=== PATIENT | female | born 1995 | race Caucasian/White ===

== ENCOUNTER 2020-02-09 22:11 | Emergency (ER) | payer MEDICAID, OTHER ==
[~2020-02-09] VITALS: Ht 157 cm; Wt 99.0 kg
[2020-02-09 22:40] LABS: BILIRUBIN,URINE NEGATIVE (NEGATIVE); CLARITY,URINE SL CLOUDY; COLOR,URINE YELLOW; GLUCOSE, URINE (UA) NEGATIVE (NEGATIVE); KETONES,URINE NEGATIVE (NEGATIVE); LEUKOCYTE ESTERASE ,URINE TRACE (NEGATIVE); NITRITE,URINE NEGATIVE (NEGATIVE); PH,URINE 6.5 (5-9); PROTEIN,URINE NEGATIVE (NEGATIVE)
[2020-02-09 22:47] LABS: BACTERIA,URINE TRACE /HPF; RBC,URINE RARE /HPF; WBC,URINE RARE /HPF
[2020-02-09] MEDS ORDERED: KETOROLAC 60 MG/2 ML VIAL IM ONE (23:00)
[2020-02-09] MEDS ORDERED: ACETAMINOPHEN 500 MG TAB (TYLENOL) PO ONE (23:00)
[2020-02-09] MEDS ORDERED: diphenhydrAMINE 25 MG TAB (BENADRYL) PO ONE (23:00)
[2020-02-09] MEDS ORDERED: PROCHLORPERAZINE 10 MG TAB (COMPAZINE) PO ONE (23:00)
--- NOTE | 2020-02-09 23:00 | ED Headache ---
General Chief Complaint: Head/Cervical Problems Stated Complaint: MIGRAINE Source: patient, family, other Exam Limitations: no limitations History of Present Illness Date Seen by Provider: Feb 09, 2020 Time Seen by Provider: 22:40 Initial Comments Patient presents to ER by private conveyance with chief complaint of the headache started sometime before 1400 today. She has a history of frequent headaches sometimes lasting hours sometimes lasting days. She said that she got off her shift at 10:00 and was still having a headache. She took some ibuprofen early on in her shift. She says she has tried topiramate in the past without success. She uses Tylenol, Excedrin, caffeine with little relief of her headaches. She is establishing care with a new primary care provider at [facility]. She's not having any nausea fever chills cough shortness of breath or pain in her ears. Allergies and Home Medications Allergies Coded Allergies: bee venom protein (honey bee) (Verified Allergy, Unknown, 02/09/20) hydrocodone (Unverified Adverse Reaction, Unknown, nausea, 02/09/20) Patient Home Medication List Home Medication List Reviewed: Yes Review of Systems Review of Systems Constitutional: No chills, No diaphoresis Eyes: Denies Blindness, Denies Blurred Vision Ears, Nose, Mouth, Throat: denies ear pain, denies ear discharge Respiratory: No cough, No short of breath Cardiovascular: No chest pain, No edema, No Hx of Intervention Gastrointestinal: No abdominal pain, No nausea, No vomiting Genitourinary: No discharge, No dysuria Musculoskeletal: No back pain, No joint pain Past Jwdlgit-Jhdiwo-Gxydzv Hx Patient Social History Alcohol Use: Denies Use Recreational Drug Use: No Smoking Status: Never a Smoker Recent Foreign Travel: No Contact w/Someone Who Travel: No Physical Exam Vital Signs Capillary Refill : Height, Weight, BMI Height: '" Weight: lbs. oz. kg; BMI Method: General Appearance: WD/WN, no apparent distress HEENT: PERRL/EOMI, pharynx normal, TM abnormal (L) (retracted, clear mucoid effusion without erythema, injection or loss of the tympanic membrane landmarks) Neck: full range of motion, normal inspection Cardiovascular: normal peripheral pulses, regular rate, rhythm Respiratory: no respiratory distress, no accessory muscle use Psychiatric: alert, oriented x 3 Crainal Nerves: normal hearing, normal speech, PERRL Skin: normal color, warm/dry Progress/Results/Core Measures Results/Orders Lab Results Laboratory Tests Test 02/09/20 22:25 Range/Units Urine Color YELLOW Urine Clarity SL CLOUDY Urine pH 6.5 5-9 Urine Specific [place] 1.025 H 1.016-1.022 Urine Protein NEGATIVE NEGATIVE Urine Glucose (UA) NEGATIVE NEGATIVE Urine Ketones NEGATIVE NEGATIVE Urine Nitrite NEGATIVE NEGATIVE Urine Bilirubin NEGATIVE NEGATIVE Urine Urobilinogen 0.2 < = 1.0 MG/DL Urine Leukocyte Esterase TRACE H NEGATIVE Urine RBC (Auto) 2+ H NEGATIVE Urine RBC RARE /HPF Urine WBC RARE /HPF Urine Squamous Epithelial Cells 2-5 /HPF Urine Crystals NONE /LPF Urine Bacteria TRACE /HPF Urine Casts NONE /LPF Urine Mucus NEGATIVE /LPF Urine Culture Indicated NO My Orders Orders - SULY ALCANTARA Ua Culture If Indicated (02/09/20 22:17) Urine Bedside (02/09/20 22:17) Acetaminophen Tablet (Tylenol Tablet) (02/09/20 23:00) Ketorolac Injection (Toradol Injection) (02/09/20 23:00) Diphenhydramine Tablet (Benadryl Tablet) (02/09/20 23:00) Prochlorperazine Tablet (Compazine Table (02/09/20 23:00) Medications Given in ED Current Medications Medications Dose Ordered Sig/David Route Start Time Stop Time Status Last Admin Dose Admin Acetaminophen 1,000 mg ONCE ONCE PO 02/09/20 23:00 02/09/20 23:01 DC 02/09/20 23:04 1,000 MG Diphenhydramine HCl 25 mg ONCE ONCE PO 02/09/20 23:00 02/09/20 23:01 DC 02/09/20 23:04 25 MG Ketorolac Tromethamine 60 mg ONCE ONCE IM 02/09/20 23:00 02/09/20 23:01 DC 02/09/20 23:09 60 MG Prochlorperazine Maleate 10 mg ONCE ONCE PO 02/09/20 23:00 02/09/20 23:01 DC 02/09/20 23:04 10 MG Progress Progress Note : Time: 22:58 Progress Note Toradol, Tylenol, Compazine, Benadryl and rest. We discussed the possibility of analgesic rebound headaches. We have encouraged her to start logging her headaches as well as complete a worksheet of known headache triggers prior to her visit with her primary care provider. Departure Impression Primary Impression: Headache Qualified Codes: R51 - Headache Disposition: 01 HOME, SELF-CARE Condition: Stable Departure-Patient Inst. Decision time for Depature: 22:59 Referrals: NO,LOCAL PHYSICIAN (PCP) Primary Care Physician Patient Instructions: Migraine Headache (DC) Add. Discharge Instructions: Go home and get some sleep. Drink plenty of fluids. Tylenol 1000 mg every 8 hours as needed for pain. Ibuprofen 800 mg every 8 hours as needed for pain. All discharge instructions reviewed with patient and/or family. Voiced understanding. Work/School Note: Work Release Form Date Seen in the Emergency Department: Feb 09, 2020 Return to Work: Feb 11, 2020 Restrictions: No Restrictions SULY ALCANTARA Feb 09, 2020 23:00
[2020-02-09 23:41] VITALS: BP 128/80
--- OUTSIDE RECORDS SUMMARY | 2020-02-12 00:27 | XMS REPORT | Referral Summary ---
Author Author [facility], [facility] Organization [facility], [facility] Address Unknown Phone Unavailable Care Team Providers Care Coat Presser Name Role Phone Chloé Hidalgo PCP Encounter VC Date(s): 05/03/15 - 05/03/15 [facility] Palmer, [facility] [address] [place] [id number] Discharge Diagnosis: Recurrent headache Discharge Disposition: 01-Home or Self Care Attending Physician: Chloé Hidalgo DO Admitting Physician: Chloé Hidalgo DO Vital Signs Most recent to 1 oldest [Reference Range]: Temperature Oral 37 degC [35.8-37.3 degC] (05/03/15 1:04 PM) Apical Heart Rate 90 bpm [60-100 bpm] (05/03/15 1:04 PM) Blood Pressure 120/80 mmHg [90-140/60-90 mmHg] (05/03/15 1:04 PM) SpO2 98 % (05/03/15 1:04 PM) Problem List Condition Effective Dates Status Health Status Informan t Obesity Active (disorder)(Confirmed ) Allergies, Adverse Reactions, Alerts Substance Reaction Severity Status acetaminophen nausea Active HYDROcodone nausea Active Medications IBU Oral, 0 Refill(s) Start Date: 05/03/15 Status: Ordered Imitrex 100 mg oral tablet 100 mg 1 tabs, Oral, Daily, At onset of STEEN, may repeat dose in 2 hours if needed , # 9 tabs, 1 Refill(s), Pharmacy: [facility]/pharmacy #[id number], 1 tabs Oral Daily,Instr: At onset of STEEN, may repeat dose in 2 hours if needed Start Date: 05/03/15 Stop Date: 05/03/15 Status: Ordered propranolol 80 mg oral tablet 80 mg 1 tabs, Oral, BID, # 60 tabs, 11 Refill(s), Pharmacy: [facility]/pharmacy #[id number], 1 tabs Oral BID Start Date: 05/03/15 Status: Ordered Results No data available for this section Immunizations Vaccine Date Refusal Reason tetanus/diphth/pertuss (Tdap) adult/adol 07/06/12 diphtheria/pertussis, whole cell/tetanus 05/11/99 diphtheria/pertussis, whole cell/tetanus 03/24/96 diphtheria/pertussis, whole cell/tetanus 95 diphtheria/pertussis, whole cell/tetanus 95 diphtheria/pertussis, whole cell/tetanus 95 haemophilus b conjugate (HbOC) vaccine 03/24/96 haemophilus b conjugate (HbOC) vaccine 95 haemophilus b conjugate (HbOC) vaccine 95 haemophilus b conjugate (HbOC) vaccine 95 hepatitis A pediatric vaccine 07/06/12 hepatitis A pediatric vaccine 04/04/11 hepatitis B pediatric vaccine 95 hepatitis B pediatric vaccine 95 hepatitis B pediatric vaccine 95 human papillomavirus vaccine 04/04/11 human papillomavirus vaccine 04/20/10 measles/mumps/rubella virus vaccine 04/04/11 measles/mumps/rubella virus vaccine 03/24/96 meningococcal conjugate vaccine 07/07/12 meningococcal conjugate vaccine 07/06/12 poliovirus vaccine, inactivated 05/11/99 poliovirus vaccine, inactivated 95 poliovirus vaccine, inactivated 95 poliovirus vaccine, inactivated 95 tetanus/diphtheria/pertussis, acel(Tdap) 07/07/12 tetanus-diphth toxoids (Td) adult/adol 08/22/06 varicella virus vaccine 04/20/10 varicella virus vaccine 07/13/98 Procedures Procedure Date Related Diagnosis Body Site None Social History Social History Type Response Smoking Status Never smoker Assessment and Plan Extracted from: Title: Ambulatory Patient Education Author: Chloé Hidalgo DO Date: 05/03/15 Family Medicine Headaches, Frequently Asked Questions MIGRAINE HEADACHES Q: What is migraine? What causes it? How can I treat it? A: Generally, migraine headaches begin as a dull ache. Then they develop into a constant, throbbing, and pulsating pain. You may experience pain at the temples. You may experience pain at the front or back of one or both sides of the head. The pain is usually accompanied by a combination of: Nausea. Vomiting. Sensitivity to light and noise. Some people (about 15%) experience an aura (see below) before an attack. The cause of migraine is believed to be chemical reactions in the brain. Treatment for migraine may include ysxo-ovd-zrcmkmn or prescription medications. It may also include self-help techniques. These include relaxation training and biofeedback. Q: What is an aura? A: About 15% of people with migraine get an "aura". This is a sign of neurological symptoms that occur before a migraine headache. You may see wavy or jagged lines, dots, or flashing lights. You might experience tunnel vision or blind spots in one or both eyes. The aura can include visual or auditory hallucinations (something imagined). It may include disruptions in smell (such as strange odors), taste or touch. Other symptoms include: Numbness. A "pins and needles" sensation. Difficulty in recalling or speaking the correct word. These neurological events may last as long as 60 minutes. These symptoms will fade as the headache begins. Q: What is a trigger? A: Certain physical or environmental factors can lead to or "trigger" a migraine. These include: Foods. Hormonal changes. Weather. Stress. It is important to remember that triggers are different for everyone. To help prevent migraine attacks, you need to figure out which triggers affect you. Keep a headache diary. This is a good way to track triggers. The diary will help you talk to your healthcare professional about your condition. Q: Does weather affect migraines? A: Bright sunshine, hot, humid conditions, and drastic changes in barometric pressure may lead to, or "trigger," a migraine attack in some people. But studies have shown that weather does not act as a trigger for everyone with migraines. Q: What is the link between migraine and hormones? A: Hormones start and regulate many of your body's functions. Hormones keep your body in balance within a constantly changing environment. The levels of hormones in your body are unbalanced at times. Examples are during menstruation, , or menopause. That can lead to a migraine attack. In fact, about three quarters of all women with migraine report that their attacks are related to the menstrual cycle. Q: Is there an increased risk of stroke for migraine sufferers? A: The likelihood of a migraine attack causing a stroke is very remote. That is not to say that migraine sufferers cannot have a stroke associated with their migraines. In persons under age 40, the most common associated factor for stroke is migraine headache. But over the course of a person's normal life span, the occurrence of migraine headache may actually be associated with a reduced risk of dying from cerebrovascular disease due to stroke. Q: What are acute medications for migraine? A: Acute medications are used to treat the pain of the headache after it has started. Examples jqtw-roe-kilcebw medications, NSAIDs, ergots, and triptans. Q: What are the triptans? A: Triptans are the newest class of abortive medications. They are specifically targeted to treat migraine. Triptans are vasoconstrictors. They moderate some chemical reactions in the brain. The triptans work on receptors in your brain. Triptans help to restore the balance of a neurotransmitter called serotonin. Fluctuations in levels of serotonin are thought to be a main cause of migraine. Q: Are zdas-bah-djwfxzx medications for migraine effective? A: Nwcp-htf-ogpiiua, or "OTC," medications may be effective in relieving mild to moderate pain and associated symptoms of migraine. But you should see your caregiver before beginning any treatment regimen for migraine. Q: What are preventive medications for migraine? A: Preventive medications for migraine are sometimes referred to as "prophylactic" treatments. They are used to reduce the frequency, severity, and length of migraine attacks. Examples of preventive medications include antiepileptic medications, antidepressants, beta-blockers, calcium channel blockers, and NSAIDs (nonsteroidal anti-inflammatory drugs). Q: Why are anticonvulsants used to treat migraine? A: During the past few years, there has been an increased interest in antiepileptic drugs for the prevention of migraine. They are sometimes referred to as "anticonvulsants". Both epilepsy and migraine may be caused by similar reactions in the brain. Q: Why are antidepressants used to treat migraine? A: Antidepressants are typically used to treat people with depression. They may reduce migraine frequency by regulating chemical levels, such as serotonin, in the brain. Q: What alternative therapies are used to treat migraine? A: The term "alternative therapies" is often used to describe treatments considered outside the scope of conventional Western medicine. Examples of alternative therapy include acupuncture, acupressure, and yoga. Another common alternative treatment is herbal therapy. Some herbs are believed to relieve headache pain. Always discuss alternative therapies with your caregiver before proceeding. Some herbal products contain arsenic and other toxins. TENSION HEADACHES Q: What is a tension-type headache? What causes it? How can I treat it? A: Tension-type headaches occur randomly. They are often the result of temporary stress, anxiety, fatigue, or anger. Symptoms include soreness in your temples, a tightening band-like sensation around your head (a "vice-like" ache). Symptoms can also include a pulling feeling, pressure sensations, and rosita head and neck muscles. The headache begins in your forehead, temples, or the back of your head and neck. Treatment for tension-type headache may include ydyl-ums-zdehhpl or prescription medications. Treatment may also include self- help techniques such as relaxation training and biofeedback. CLUSTER HEADACHES Q: What is a cluster headache? What causes it? How can I treat it? A: Cluster headache gets its name because the attacks come in groups. The pain arrives with little, if any, warning. It is usually on one side of the head. A tearing or bloodshot eye and a runny nose on the same side of the headache may also accompany the pain. Cluster headaches are believed to be caused by chemical reactions in the brain. They have been described as the most severe and intense of any headache type. Treatment for cluster headache includes prescription medication and oxygen. SINUS HEADACHES Q: What is a sinus headache? What causes it? How can I treat it? A: When a cavity in the bones of the face and skull (a sinus ) becomes inflamed, the inflammation will cause localized pain. This condition is usually the result of an allergic reaction, a tumor, or an infection. If your headache is caused by a sinus blockage, such as an infection, you will probably have a fever. An x-ray will confirm a sinus blockage. Your caregiver's treatment might include antibiot ics for the infection, as well as antihistamines or decongestants. REBOUND HEADACHES Q: What is a rebound headache? What causes it? How can I treat it? A: A pattern of taking acute headache medications too often can lead to a condition known as "rebound headache." A pattern of taking too much headache medication includes taking it more than 2 days per week or in excessive amounts. That means more than the label or a caregiver advises. With rebound headaches, your medications not only stop relieving pain, they actually begin to cause headaches. Doctors treat rebound headache by tapering the medication that is being overused. Sometimes your caregiver will gradually substitute a different type of treatment or medication. Stopping may be a challenge. Regularly overusing a medication increases the potential for serious side effects. Consult a caregiver if you regularly use headache medications more than 2 days per week or more than the label advises. ADDITIONAL QUESTIONS AND ANSWERS Q: What is biofeedback? A: Biofeedback is a self-help treatment. Biofeedback uses special equipment to monitor your body's involuntary physical responses. Biofeedback monitors: Breathing. Pulse. Heart rate. Temperature. Muscle tension. Brain activity. Biofeedback helps you refine and perfect your relaxation exercises. You learn to control the physical responses that are related to stress. Once the technique has been mastered, you do not need the equipment any more. Q: Are headaches hereditary? A: Four out of five (80%) of people that suffer report a family history of migraine. Scientists are not sure if this is genetic or a family predisposition. Despite the uncertainty, a child has a 50% chance of having migraine if one parent suffers. The child has a 75% chance if both parents suffer. Q: Can children get headaches? A: By the time they reach high school, most young people have experienced some type of headache. Many safe and effective approaches or medications can prevent a headache from occurring or stop it after it has begun. Q: What type of doctor should I see to diagnose and treat my headache? A: Start with your primary caregiver. Discuss his or her experience and approach to headaches. Discuss methods of classification, diagnosis, and treatment. Your caregiver may decide to recommend you to a headache specialist, depending upon your symptoms or other physical conditions. Having diabetes, allergies, etc., may require a more comprehensive and inclusive approach to your headache. The [employer] will provide, upon request, a list of NHF physician members in your state. Document Released: 02/06/2005 Document Revised: 02/08/2013 Document Reviewed: 07/17/2009 Exit[employer] Patient Information 2014 [employer]. No follow up information was provided. Extracted from: Title: OV: CELSA POTTER Author: Chloé Hidalgo DO Date: 05/03/15 Assessment/Plan 1.Recurrent headache propranolol 80mg BID for headache prevention. Monitor BP. Imitrex for acute treatment of STEEN Discussed sleep complicating headaches -- she has unconventional sleep hours, but is pretty consistent with her bedtime/awake time even on days off. Will hold off on sleep consult for now. Discussed caffeine, NSAIDs, smoking worsening headaches. She avoids these things currently. f/u in 1mo. Ordered: Office Visit Level 3 [place] [id number] Return to Clinic Orders: propranolol, 80 mg 1 tabs, Oral, BID, # 60 tabs, 11 Refill(s), Pharmacy: [facility]/pharmacy #[id number], 1 tabs Oral BID SUMAtriptan, 100 mg 1 tabs, Oral, Daily, At onset of STEEN, may repeat dose in 2 hours if needed, # 9 tabs, 1 Refill(s), Pharmacy: [facility]/pharmacy #[id number], 1 tabs Oral Daily,Instr:At onset of STEEN, may repeat dose in 2 hours if needed Referrals to Other Providers Referred by: Chloé Hidalgo DO
--- OUTSIDE RECORDS SUMMARY | 2020-02-12 00:27 | XMS REPORT | Continuity of Care Document ---
Author Author MATY Tello Organization Ambulatory Address Unknown Phone Unavailable Care Team Providers Care In Home Nanny Name Role Phone Caitlyn Ty PP Unavailable Payers Payer name Insurance type Covered republican ID Authorization(s ) Unknown Problems Condition Effective Dates (start - stop) Clinical Status Fatigue - *Poor control Abnormal weight gain - *Acute Obesity - *Poor control Mood disorder - *Fair Control Dysmenorrhea in the adolescent - *Poor con trol Routine infant or child health check - Rou jennifer Weight loss - New onset Other specified viral warts - *Acute Dysmenorrhea - *Chronic Abnormal weight gain - *Poor control Adjustment disorder - *Poor control Depression - *Poor control Family History Family Member Diagnosis Age At Onset Status Father (Alive) Diabetes Yes Maternal grandmother (Alive) Diabetes Yes Social History Social History Element Description Quantity Unknown Allergies, Adverse Reactions, Alerts Substance Reaction Severity Status Unknown Medications Medication Instructions Dosage Effective Dates (start - sto p) Status naproxen 500 mg tablet take 1 tablet (500MG) by or al route 2 times daily with food as needed for pain - Active Immunizations Vaccine Date Status Comments MCV4 (11-55 yrs) completed Tdap completed Hep A (ped/adol, 2 dose) completed DTP completed - Completed reas on: other registry DTP completed - Completed reas on: other registry DTP completed - Completed reas on: other registry OPV completed - Completed reas on: other registry DTP completed - Completed reas on: other registry DTP completed - Completed reas on: other registry Td (adult) completed - Completed reas on: other registry OPV completed - Completed reas on: other registry OPV completed - Completed reas on: other registry OPV completed - Completed reas on: other registry MMR completed - Completed reas on: other registry MMR completed - Completed reas on: other registry hep B (ped/adol, 3 dose) completed - Compl eted reason: other registry Hib (HbOC) completed - Completed reas on: other registry Hib (HbOC) completed - Completed reas on: other registry Hib (HbOC) completed - Completed reas on: other registry Hib (HbOC) completed - Completed reas on: other registry hep B (ped/adol, 3 dose) completed - Compl eted reason: other registry hep B (ped/adol, 3 dose) completed - Compl eted reason: other registry varicella completed - Completed reas on: other registry varicella completed - Completed reas on: other registry HPV (quadrivalent) completed - Completed r bernardo: other registry HPV (quadrivalent) completed - Completed r bernardo: other registry hep A (ped/adol, 2 dose) completed - Compl eted reason: other registry meningococcal completed - Completed reas on: other registry Results Test Name Date and Time Measure Units Reference Range Abnormal F lag Comments Panel Description: Hgb A1c Hemoglobin A1C 09:34:30 5.2 Panel Description: Urine Dip Color 09:34:30 yellow Appearance 09:34:30 clear Glucose, Urine 09:34:30 neg Bilirubin 09:34:30 neg Ketones 09:34:30 neg Specific [place] 09:34:30 1.020 Blood 09:34:30 1+ Ph 09:34:30 7.0 Protein 09:34:30 neg Urobilinogen 09:34:30 norm Nitrites 09:34:30 neg Leukocytes 09:34:30 neg Panel Description: CBC with Manual Diffe rential WBC 09:32:00 8.7 K/uL 4.8-10.8 RBC 09:32:00 5.08 M/uL 4.00-5.20 HGB 09:32:00 14.1 g/dl 12.0-16.0 HCT 09:32:00 43.1 % 37.0-47.0 MCV 09:32:00 84.8 fL 82.0-99.0 MCH 09:32:00 27.8 pg 27.0-32.0 MCHC 09:32:00 32.7 g/dL 32.0-36.0 RDW 09:32:00 13.3 % 11.5-14.5 MPV 09:32:00 11.4 fL 8.8-14.8 Platelet Count 09:32:00 282 K/uL 150-400 Neutrophils 09:32:00 75 % 51-75 Lymphocytes 09:32:00 18 % 20-46 L Monocytes 09:32:00 6 % 4-11 Eosinophils 09:32:00 1 % 0-4 Basophils 09:32:00 0 % 0-2 Differential 09:32:00 Manual A Absolute Neutrophils 09:32:00 6.53 THOUS 1.90-7.0 0 Absolute Lymphocytes 09:32:00 1.57 THOUS 0.80-3.3 0 Absolute Monocytes 09:32:00 0.52 THOUS 0.30-1.00 Absolute Eosinophils 09:32:00 0.09 THOUS 0.00-0.5 0 Absolute Basophils 09:32:00 0.00 THOUS 0.00-0.20 Panel Description: TSH with Reflex Free T4 TSH with Reflex Free T4 09:32:00 1.54 uIU/mL 0.35- 4.94 Panel Description: Comprehensive Metabol ic Panel (CMP) Glucose 09:32:00 87 mg/dL 70-99 BUN 09:32:00 9 mg/dL 8-21 Creatinine 09:32:00 0.73 mg/dL 0.57-1.11 Calcium 09:32:00 9.8 mg/dL 8.9-10.5 Sodium 09:32:00 137 mEq/L 135-144 Potassium 09:32:00 4.4 mEq/L 3.5-5.2 Chloride 09:32:00 106 mEq/L 99-111 CO2 09:32:00 23 mEq/L 22-31 Albumin 09:32:00 4.4 g/dL 3.5-5.0 Bilirubin Total 09:32:00 0.3 mg/dL 0.2-1.2 Alkaline Phosphatase 09:32:00 72 U/L 40-150 Protein 09:32:00 7.1 g/dL 6.4-8.3 ALT (SGPT) 09:32:00 21 U/L 0-55 AST (SGOT) 09:32:00 20 U/L 15-45 Anion Gap 09:32:00 8 3-20 Globulin 09:32:00 2.7 g/dL 1.8-4.0 Panel Description: eGFR eGFR 09:32:00 >60 mL/min >60 Multiply eGFR results by 1.21 for race. Vital Signs Date / Time: Height Weight Pulse Rate Blood Pressure Temperat ure /08:24:00 62.50 in 188.00 lbs 80 /min 100/80 mm[Hg] 9 8.6 F Procedures Procedure Date Unknown Encounters Encounter Location Date Patient Visit [facility] Patient Visit [facility] Patient Visit [facility] Patient Visit [facility] Patient Visit [facility] Patient Visit [facility] Advance Directives Directive Effective Date Unknown
--- OUTSIDE RECORDS SUMMARY | 2020-02-12 00:27 | XMS REPORT | Continuity of Care Document ---
Author Author Alexis NOE, MATY Gan Organization Ambulatory Address [address] [facility] [place] [address] Phone Care Team Providers Care Melting Operator Name Role Phone MelonyCaitlyn PP Unavailable Payers Payer name Insurance type Covered constitution party ID Authorization(s ) Unknown Problems Condition Effective Dates (start - stop) Clinical Status Obesity - Improved Abnormal weight gain - Improved Dysmenorrhea in the adolescent - *Poor con trol Routine infant or child health check - Rou jennifer Weight loss - New onset Fatigue - *Poor control Abnormal weight gain - *Acute Obesity - *Poor control Mood disorder - *Fair Control Other specified viral warts - *Acute Dysmenorrhea - *Chronic Abnormal weight gain - *Poor control Adjustment disorder - *Poor control Depression - *Poor control Family History Family Member Diagnosis Age At Onset Status Father (Alive) Diabetes Yes Maternal grandmother (Alive) Diabetes Yes Social History Social History Element Description Quantity Unknown Allergies, Adverse Reactions, Alerts Substance Reaction Severity Status ACETAMINOPHEN nausea Unknown HYDROCODONE BIT nausea Unknown Medications Medication Instructions Dosage Effective Dates (start - sto p) Status phentermine 15 mg capsule take 1 capsule (15MG) by or al route every day before breakfast 15 MG - Active naproxen 500 mg tablet take 1 tablet [...] Range Abnormal F lag Comments Panel Description: HCG /Qualita tive HCG /Qualitative 17:03:03 neg Vital Signs Date / Time: Height Weight Pulse Rate Blood Pressure Temperat ure /15:56:00 62.50 in 179.10 lbs 88 /min 120/70 mm[Hg] 9 8.4 F Procedures Procedure Date Unknown Encounters Encounter Location Date Patient Visit [facility] Patient Visit [facility] Patient Visit [facility] Patient Visit [facility] Patient Visit [facility] Patient Visit [facility] Patient Visit [facility] Advance Directives Directive Effective Date Unknown
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
== END 2020-02-09 23:43 | disposition home or self-care (01) ==
LOC: ER 22:13
DX: R51 Headache (principal); Z91.030 Bee allergy status; Z88.5 Allergy status to narcotic agent
CPT/HCPCS: 81000; 84703; 99284

== ENCOUNTER 2020-02-14 00:30 | Emergency (ER) | payer MEDICAID ==
[~2020-02-14] VITALS: Ht 157 cm; Wt 112.7 kg
[2020-02-14] MEDS ORDERED: BUTA1CAP41 PO (01:14)
[2020-02-14] MEDS ORDERED: TOPI50TA13 PO (01:14)
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
[2020-02-14] MEDS ORDERED: PRD20T PO (01:43)
[2020-02-14] MEDS ORDERED: KETOROLAC 60 MG/2 ML VIAL IM ONE (01:45)
[2020-02-14 01:49] VITALS: BP 118/70
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
== END 2020-02-14 02:02 | disposition home or self-care (01) ==
LOC: EDUNIT# 00:30 → ER 00:33
DX: R51 Headache (principal); Z88.5 Allergy status to narcotic agent; Z87.820 Personal history of traumatic brain injury; Z86.69 Personal history of other diseases of the nervous system and sense organs
CPT/HCPCS: 87430; 87804

== ENCOUNTER 2020-02-18 15:04 | Emergency (ER) | payer MEDICAID ==
[~2020-02-18] VITALS: Ht 154.9 cm; Wt 104.3 kg
[~2020-02-18 15:04] MED LIST: BUTA1CAP41 PO; PRD20T PO; TOPI50TA13 PO
[2020-02-18] MEDS ORDERED: IBUPROFEN 800 MG (MOTRIN) TAB PO STA (15:38)
[2020-02-18] MEDS ORDERED: diphenhydrAMINE 25 MG TAB (BENADRYL) PO ONE (15:45)
--- NOTE | 2020-02-18 15:49 | ED Headache ---
General Chief Complaint: Head/Cervical Problems Stated Complaint: MIGRAINE Nursing Triage Note: pt amb to triage with complaint of migraine. states started this morning. was seen here friday for migraine. Nursing Sepsis Screen: No Definite Risk History of Present Illness Date Seen by Provider: Feb 18, 2020 Time Seen by Provider: 15:20 Initial Comments 25 year old female here for headache that began at 9:00 when she woke up. She takes Topamax every evening. She was seen in the ED on 02/09/20 and 02/14/20 for the same problem and educated on self care. She hasn't taken any medication, hasn't eaten, or hydrated. She denies nausea at this time. She was on Prednisone for the last 3 days, today was first day without it and she thinks that precipitated her headache. She tried lying in bed, finally took a shower, gathered her laundry, and presented to ED for "shot" to help with her symptoms. Timing/Duration: 4-6 hours Severity/Quality: moderate Location: frontal Prior Headaches/Recent Trauma: frequent headaches, chronic headaches Associated Symptoms: denies symptoms; No confusion, No fatigue, No facial pain, No fever/chills, No flushing, No loss of consciousness, No nausea/vomiting, No nasal congestion, No nasal drainage, No numbness in legs/feet, No rash, No seizures, No sinus infection, No stiff neck, No vision changes, No weakness, No other Allergies and Home Medications Allergies Coded Allergies: bee venom protein (honey bee) (Verified Allergy, Unknown, 02/09/20) hydrocodone (Unverified Adverse Reaction, Unknown, nausea, 02/09/20) Home Medications Butalb/Acetaminophen/Caffeine 1 Each Capsule, 1 EACH PO PRN, (Reported) Prednisone 20 Mg Tab, 40 MG PO DAILY Prescribed by: CHUCKY FLORES on 02/14/20 0143 Topiramate 50 Mg Tablet, 50 MG PO DAILY, (Reported) Patient Home Medication List Home Medication List Reviewed: Yes Review of Systems Review of Systems Constitutional: no symptoms reported, see HPI Psychiatric/Neurological: See HPI, Headache All Other Systems Reviewed Negative Unless Noted: Yes Past Sphtqaq-Pvwyuy-Zroazl Hx Past Med/Social Hx: Reviewed Nursing Past Med/Soc Hx Patient Social History Alcohol Use: Denies Use Recreational Drug Use: No Smoking Status: Never a Smoker 2nd Hand Smoke Exposure: No Recent Foreign Travel: No Contact w/Someone Who Travel: No Recent Infectious Disease Expo: No Recent Hopitalizations: No Immunizations Up To Date Tetanus Booster (TDap): Unknown Seasonal Allergies Seasonal Allergies: No Past Medical History Surgeries: No Respiratory: No Cardiac: No Neurological: Yes (CHRONIC DAILY HEADACHES SINCE 2ND GRADE/HIT HER HEAD WHEN FELL OFF SWING) Concussion, Headaches /Migraines Reproductive Disorders: No Genitourinary: No Gastrointestinal: No Musculoskeletal: No Endocrine: No HEENT: No Cancer: No Psychosocial: No Integumentary: No Blood Disorders: No Physical Exam Vital Signs Vital Signs - First Documented 02/18/20 15:10 Temp 36.9 Pulse 87 Resp 20 B/P (MAP) 119/84 (96) Pulse Ox 97 O2 Delivery Room Air Capillary Refill : Less Than 3 Seconds Height, Weight, BMI Height: '" Weight: lbs. oz. kg; 43.00 BMI Method: General Appearance: WD/WN, no apparent distress HEENT: PERRL/EOMI, normal ENT inspection, TMs normal, pharynx normal Neck: non-tender, full range of motion, supple, normal inspection Cardiovascular: normal peripheral pulses, regular rate, rhythm Respiratory: chest non-tender, lungs clear, normal breath sounds Gastrointestinal: normal bowel sounds, non tender, soft Psychiatric: alert, oriented x 3 Crainal Nerves: normal hearing, normal speech, PERRL Coordination/Gait: normal finger to nose, normal gait Motor/Sensory: no motor deficit, no sensory deficit Skin: normal color, warm/dry Progress/Results/Core Measures Results/Orders My Orders Orders - HALIMA SANTIAGO Ibuprofen Tablet (Motrin Tablet) (02/18/20 15:38) Diphenhydramine Tablet (Benadryl Tablet) (02/18/20 15:45) Medications Given in ED Current Medications Medications Dose Ordered Sig/David Route Start Time Stop Time Status Last Admin Dose Admin Diphenhydramine HCl 50 mg ONCE ONCE PO 02/18/20 15:45 02/18/20 15:46 DC 02/18/20 15:47 50 MG Vital Signs/I&O 02/18/20 02/18/20 15:10 16:00 Temp 36.9 36.9 Pulse 87 87 Resp 20 20 B/P (MAP) 119/84 (96) 119/84 (96) Pulse Ox 97 97 O2 Delivery Room Air Blood Pressure Mean: 96 Departure Impression Primary Impression: Migraine Qualified Codes: G43.019 - Migraine without aura, intractable, without status migrainosus Disposition: 01 HOME, SELF-CARE Condition: Improved Departure-Patient Inst. Decision time for Depature: 15:48 Referrals: [facility] (PCP/Family) Primary Care Physician Patient Instructions: Migraine Headache (DC) Add. Discharge Instructions: It is important that you begin treating your migraine at the first onset, by taking Excedrin Migraine and drinking 16 oz of water. Repeat this every 6-8 hours. If this does not reliever your symptoms, take Ibuprofen 600 mg with Benadryl 25 mg 4-6 hours after the Excedrin. Hydration and not eating, will make migraines worse. The emergency department is here to see you for acute life-threatening health problems, you will be better served at [facility] with a primary care provider or their urgent care for chronic health care problems. Return to the emergency dept for urgent health care needs. All discharge instructions reviewed with patient and/or family. Voiced understanding. HALIMA SANTIAGO Feb 18, 2020 15:49
[2020-02-18 16:00] VITALS: BP 119/84
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
== END 2020-02-18 16:00 | disposition home or self-care (01) ==
LOC: EDUNIT# 15:04 → ER 15:06
DX: G43.909 Migraine, unspecified, not intractable, without status migrainosus (principal); Z88.5 Allergy status to narcotic agent; Z91.030 Bee allergy status
CPT/HCPCS: 99283

== ENCOUNTER 2020-04-30 20:46 | Emergency (ER) | payer MEDICAID ==
[~2020-04-30] VITALS: Ht 157 cm; Wt 110.0 kg
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
[2020-04-30] MEDS ORDERED: NS IV 500 ML 500 ML IV ONE (21:22)
--- NOTE | 2020-04-30 21:29 | ED Abdominal Pain ---
General Chief Complaint: Abdominal/GI Problems Stated Complaint: ABD PAIN/NAUSEA Nursing Triage Note: PT ambulates to RM 5 with c/o left sided abd pain since 1700 with nausea, no vomiting yet. 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 Pt denies any fever/chills, or being in contact with anyone that's been sick recently. 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 Sepsis Screen: No Definite Risk Source of Information: Patient Exam Limitations: No Limitations History of Present Illness Date Seen by Provider: April 30, 2020 Time Seen by Provider: 21:15 Initial Comments Patient presents to ER by private conveyance from home with chief complaint of left lower quadrant abdominal pain starting approximately 4 hours ago at 5- 5:30 PM. She describes it as crampy. She had a bowel movement about half hour prior to that which was unusual for her, hard. She has no history of IBS/IBD or chronic constipation. She thought maybe it was gas pain so she took a Gas-X which did not help. She took Tums which also did not help. She rates the pain as a 7.5 out of 10. She would like something for the pain. She's having no nausea fever chills cough sweats, shortness of air, travel to endemic area. No history of abdominal surgeries or endoscopy. No history of trauma. She just got off of Depo-Provera approximately 11 months ago and has not had a regular period since. Her last period was 40 days ago. She says she is not sexually active and has no dysuria discharge or dyspareunia. She says this happened once before in October 2019 and she went to the ER had a workup with labs. They gave her a cocktail of medicines to drink and then told her it was nothing dangerous and go home. It went away within a day. She never followed up with her primary care doctor. She follows with [facility] presently. She has a history of migraines on topiramate. She remarks that the car ride over was perfectly pleasant. Allergies and Home Medications Allergies Coded Allergies: bee venom protein (honey bee) (Verified Allergy, Unknown, 02/09/20) hydrocodone (Unverified Adverse Reaction, Unknown, nausea, 02/09/20) Home Medications Butalb/Acetaminophen/Caffeine 1 Each Capsule, 1 EACH PO PRN, (Reported) Prednisone 20 Mg Tab, 40 MG PO DAILY Prescribed by: CHUCKY FLORES on 02/14/20 0143 Topiramate 50 Mg Tablet, 50 MG PO DAILY, (Reported) Patient Home Medication List Home Medication List Reviewed: Yes Review of Systems Review of Systems Constitutional: No chills, No diaphoresis EENTM: No Blurred Vision, No Double Vision Respiratory: Denies Cough, Denies Shortness of Air Cardiovascular: Denies Chest Pain, Denies Lightheadedness Gastrointestinal: Constipated; Denies Diarrhea, Denies Difficulty Swallowing, Denies Nausea Genitourinary: Denies Burning, Denies Discharge Musculoskeletal: No back pain, No joint pain Skin: No pruritus, No rash Psychiatric/Neurological: Denies Headache, Denies Numbness, Denies Paresthesia All Other Systems Reviewed Negative Unless Noted: Yes Past Zyzbwuj-Xewmaj-Grbomd Hx Patient Social History Alcohol Use: Denies Use Recreational Drug Use: No Smoking Status: Never a Smoker 2nd Hand Smoke Exposure: No Recent Foreign Travel: No Contact w/Someone Who Travel: No Recent Infectious Disease Expo: No Recent Hopitalizations: No Immunizations Up To Date Tetanus Booster (TDap): Unknown Seasonal Allergies Seasonal Allergies: No Past Medical History Surgeries: No Respiratory: No Cardiac: No Neurological: Yes (CHRONIC DAILY HEADACHES SINCE 2ND GRADE/HIT HER HEAD WHEN FELL OFF SWING) Concussion, Headaches /Migraines Reproductive Disorders: No Genitourinary: No Gastrointestinal: No Musculoskeletal: No Endocrine: No HEENT: No Cancer: No Psychosocial: No Integumentary: No Blood Disorders: No Physical Exam Vital Signs Vital Signs - First Documented 04/30/20 21:05 Temp 36.9 Pulse 84 Resp 17 B/P (MAP) 129/91 (104) Pulse Ox 98 O2 Delivery Room Air Capillary Refill : Less Than 3 Seconds Height/Weight/BMI Height: '" Weight: lbs. oz. kg; 44.00 BMI Method: General Appearance: WD/WN, mild distress HEENT: PERRL/EOMI, pharynx normal Neck: full range of motion, normal inspection Respiratory: lungs clear, normal breath sounds, no respiratory distress, no accessory muscle use Cardiovascular: normal peripheral pulses, regular rate, rhythm Peripheral Pulses: 2+ Radial Pulses (R), 2+ Radial Pulses (L) Gastrointestinal: normal bowel sounds, soft, no organomegaly; No rebound; tenderness (mild tenderness without rebound or Rovsing sign over the left lower quadrant. No organomegaly.), other (negative for Grey sign or McBurney's point tenderness.) Extremities: normal range of motion, normal capillary refill 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: alert, normal mood/affect, oriented x 3 Skin: normal color, warm/dry Progress/Results/Core Measures Results/Orders Lab Results Laboratory Tests Test 04/30/20 21:15 04/30/20 21:24 Range/Units Urine Color YELLOW Urine Clarity CLEAR Urine pH 5.5 5-9 Urine Specific [place] 1.010 L 1.016-1.022 Urine Protein NEGATIVE NEGATIVE Urine Glucose (UA) NEGATIVE NEGATIVE Urine Ketones NEGATIVE NEGATIVE Urine Nitrite NEGATIVE NEGATIVE Urine Bilirubin NEGATIVE NEGATIVE Urine Urobilinogen 0.2 < = 1.0 MG/DL Urine Leukocyte Esterase NEGATIVE NEGATIVE Urine RBC (Auto) 1+ H NEGATIVE Urine RBC 0-2 /HPF Urine WBC 0-2 /HPF Urine Crystals NONE /LPF Urine Bacteria FEW H /HPF Urine Casts NONE /LPF Urine Mucus NEGATIVE /LPF Urine Culture Indicated NO White Blood Count 10.8 4.3-11.0 10^3/uL Red Blood Count 4.83 4.35-5.85 10^6/uL Hemoglobin 13.8 11.5-16.0 G/DL Hematocrit 41 35-52 % Mean Corpuscular Volume 85 80-99 FL Mean Corpuscular Hemoglobin 29 25-34 PG Mean Corpuscular Hemoglobin Concent 34 32-36 G/DL Red Cell Distribution Width 13.9 10.0-14.5 % Platelet Count 283 130-400 10^3/uL Mean Platelet Volume 11.0 H 7.4-10.4 FL Neutrophils (%) (Auto) 68 42-75 % Lymphocytes (%) (Auto) 20 12-44 % Monocytes (%) (Auto) 9 0-12 % Eosinophils (%) (Auto) 3 0-10 % Basophils (%) (Auto) 0 0-10 % Neutrophils # (Auto) 7.3 1.8-7.8 X 10^3 Lymphocytes # (Auto) 2.2 1.0-4.0 X 10^3 Monocytes # (Auto) 1.0 0.0-1.0 X 10^3 Eosinophils # (Auto) 0.3 0.0-0.3 10^3/uL Basophils # (Auto) 0.0 0.0-0.1 10^3/uL Sodium Level 138 135-145 MMOL/L Potassium Level 4.0 3.6-5.0 MMOL/L Chloride Level 106 98-107 MMOL/L Carbon Dioxide Level 23 21-32 MMOL/L Anion Gap 9 5-14 MMOL/L Blood Urea Nitrogen 14 7-18 MG/DL Creatinine 0.83 0.60-1.30 MG/DL Estimat Glomerular Filtration Rate > 60 BUN/Creatinine Ratio 17 Glucose Level 93 70-105 MG/DL Calcium Level 9.4 8.5-10.1 MG/DL Corrected Calcium 9.2 8.5-10.1 MG/DL Total Bilirubin 0.3 0.1-1.0 MG/DL Aspartate Amino Transf (AST/SGOT) 17 5-34 U/L Alanine Aminotransferase (ALT/SGPT) 22 0-55 U/L Alkaline Phosphatase 74 40-136 U/L C-Reactive Protein High Sensitivity 0.48 0.00-0.50 MG/DL Total Protein 7.3 6.4-8.2 GM/DL Albumin 4.3 3.2-4.5 GM/DL My Orders Orders - SULY ALCANTARA Cbc With Automated Diff (04/30/20 21:22) Comprehensive Metabolic Panel (04/30/20 21:22) Hs C Reactive Protein (04/30/20 21:22) Urine Bedside (04/30/20 21:22) Ua Culture If Indicated (04/30/20 21:22) Ed Iv/Invasive Line Start (04/30/20 21:22) Ns Iv 500 Ml (Sodium Chloride 0.9%) (04/30/20 21:22) Ketorolac Injection (Toradol Injection) (04/30/20 21:30) Medications Given in ED Current Medications Medications Dose Ordered Sig/David Route Start Time Stop Time Status Last Admin Dose Admin Ketorolac Tromethamine 30 mg ONCE ONCE IVP 04/30/20 21:30 04/30/20 21:31 DC 04/30/20 21:36 30 MG Sodium Chloride 500 ml @ 0 mls/hr Q0M ONCE IV 04/30/20 21:22 04/30/20 21:26 DC 04/30/20 21:36 0 MLS/HR Vital Signs/I&O 04/30/20 21:05 Temp 36.9 Pulse 84 Resp 17 B/P (MAP) 129/91 (104) Pulse Ox 98 O2 Delivery Room Air Blood Pressure Mean: 104 Progress Progress Note #1: Time: 21:27 Progress Note Toradol for her pain. 500 cc of fluid as an suspect constipation/obstipation is most likely source for her symptoms. Differential includes ovarian cysts, mittelschmerz, etc. Plan to get some labs. If the Labs are okay and she is not in any acute distress then we can send her home with follow-up with [facility]. Urinalysis with bedside ordered. Progress Note #2: Time: 23:31 Progress Note The patient says she feels much better and feels like she does have a bowel movement. We will allow her to go home with MiraLAX cleanout. Return precautions were given. We have asked her to follow-up with her primary care doctor this w [place] if her symptoms are not improved after a couple bowel movements. Departure Impression Primary Impression: Constipation Qualified Codes: K59.00 - Constipation, unspecified Disposition: HOME, SELF-CARE Condition: Stable Departure-Patient Inst. Decision time for Depature: 23:31 Referrals: [facility] (PCP/Family) Primary Care Physician Patient Instructions: Constipation, Adult (DC) Add. Discharge Instructions: MiraLAX 1 capful in 6-8 ounces of fluids of your choice 2-3 times a day for the next couple days until you feel like you have cleaned out your bowels. You may also use Fleet enema, suppositories etc. Plan to follow up with your doctor later this week if you do not feel you have improvement in your symptoms despite having bowel movements. Return to the ER immediately if you experience intractable pain nausea or other symptoms. All discharge instructions reviewed with patient and/or family. Voiced understanding. SULY ALCANTARA April 30, 2020 21:29
[2020-04-30] MEDS ORDERED: KETOROLAC 30 MG/ML VIAL IVP ONE (21:30)
[2020-04-30 21:37] LABS: BILIRUBIN,URINE NEGATIVE (NEGATIVE); CLARITY,URINE CLEAR; COLOR,URINE YELLOW; GLUCOSE, URINE (UA) NEGATIVE (NEGATIVE); KETONES,URINE NEGATIVE (NEGATIVE); LEUKOCYTE ESTERASE ,URINE NEGATIVE (NEGATIVE); NITRITE,URINE NEGATIVE (NEGATIVE); PH,URINE 5.5 (5-9); PROTEIN,URINE NEGATIVE (NEGATIVE)
[2020-04-30 21:38] LABS: BASOPHILS % (AUTO) 0 % (0-10); EOSINOPHILS # (AUTO) 0.3 10^3/uL (0.0-0.3); EOSINOPHILS % (AUTO) 3 % (0-10); HEMATOCRIT 41 % (35-52); HEMOGLOBIN 13.8 G/DL (11.5-16.0); LYMPHOCYTES # (AUTO) 2.2 X 10^3 (1.0-4.0); LYMPHOCYTES % (AUTO) 20 % (12-44); MEAN CORPUSCULAR HEMOGLOBIN 29 PG (25-34); MEAN CORPUSCULAR HGB CONC 34 G/DL (32-36); MEAN CORPUSCULAR VOLUME 85 FL (80-99); MONOCYTES % (AUTO) 9 % (0-12); NEUTROPHILS # (AUTO) 7.3 X 10^3 (1.8-7.8); NEUTROPHILS % (AUTO) 68 % (42-75); PLATELET COUNT 283 10^3/uL (130-400); RED CELL DISTRIBUTION WIDTH 13.9 % (10.0-14.5); WHITE BLOOD COUNT 10.8 10^3/uL (4.3-11.0)
[2020-04-30 21:50] LABS: BACTERIA,URINE FEW /HPF; RBC,URINE 0-2 /HPF; WBC,URINE 0-2 /HPF
[2020-04-30 21:54] LABS: ALBUMIN 4.3 GM/DL (3.2-4.5); CHLORIDE 106 MMOL/L (98-107); SODIUM 138 MMOL/L (135-145)
[2020-04-30 21:55] LABS: CALCIUM 9.4 MG/DL (8.5-10.1)
[2020-04-30 21:56] LABS: GLUCOSE 93 MG/DL (70-105); TOTAL PROTEIN 7.3 GM/DL (6.4-8.2)
[2020-04-30 21:58] LABS: BILIRUBIN,TOTAL 0.3 MG/DL (0.1-1.0); CARBON DIOXIDE 23 MMOL/L (21-32)
[2020-04-30 22:00] LABS: ALKALINE PHOSPHATASE 74 U/L (40-136); CREATININE SERUM 0.83 MG/DL (0.60-1.30); GFR ESTIMATED > 60
[2020-04-30 22:01] LABS: BUN/CREATININE RATIO 17
[2020-04-30 22:03] LABS: ALANINE AMINOTRANSFERASE 22 U/L (0-55)
--- NOTE | 2020-04-30 23:05 | NUR ---
Pt states pain is relieved after pain med and fluids.
--- NOTE | 2020-04-30 23:10 | NUR ---
Pt walked to restroom at this time, no assistance needed.
[2020-04-30 23:38] VITALS: BP 125/88
== END 2020-04-30 23:43 | disposition home or self-care (01) ==
LOC: EDUNIT# 20:46 → ER 20:47
DX: K59.00 Constipation, unspecified (principal); G43.909 Migraine, unspecified, not intractable, without status migrainosus; Z88.5 Allergy status to narcotic agent; Z79.52 Long term (current) use of systemic steroids; Z88.8 Allergy status to other drugs, medicaments and biological substances; Z87.820 Personal history of traumatic brain injury
CPT/HCPCS: 36415; 80053; 81000; 84703; 85025; 86141; 96361; 96374

== ENCOUNTER 2020-05-17 12:32 | Emergency (ER) | payer MEDICAID ==
[~2020-05-17] VITALS: Ht 157.5 cm; Wt 108.9 kg
[2020-05-17 12:58] LABS: BASOPHILS % (AUTO) 0 % (0-10); EOSINOPHILS # (AUTO) 0.3 10^3/uL (0.0-0.3); EOSINOPHILS % (AUTO) 4 % (0-10); HEMATOCRIT 42 % (35-52); HEMOGLOBIN 13.4 G/DL (11.5-16.0); LYMPHOCYTES % (AUTO) 24 % (12-44); MEAN CORPUSCULAR HEMOGLOBIN 28 PG (25-34); MEAN CORPUSCULAR HGB CONC 32 G/DL (32-36); MEAN CORPUSCULAR VOLUME 86 FL (80-99); MEAN PLATELET VOLUME 10.9 FL (7.4-10.4); MONOCYTES # (AUTO) 0.4 X 10^3 (0.0-1.0); MONOCYTES % (AUTO) 5 % (0-12); NEUTROPHILS # (AUTO) 5.6 X 10^3 (1.8-7.8); NEUTROPHILS % (AUTO) 67 % (42-75); PLATELET COUNT 299 10^3/uL (130-400); RED CELL DISTRIBUTION WIDTH 13.5 % (10.0-14.5); WHITE BLOOD COUNT 8.3 10^3/uL (4.3-11.0)
[2020-05-17 12:59] LABS: BILIRUBIN,URINE NEGATIVE (NEGATIVE); CLARITY,URINE CLEAR; COLOR,URINE YELLOW; GLUCOSE, URINE (UA) NEGATIVE (NEGATIVE); KETONES,URINE NEGATIVE (NEGATIVE); LEUKOCYTE ESTERASE ,URINE NEGATIVE (NEGATIVE); NITRITE,URINE NEGATIVE (NEGATIVE); PH,URINE 5.5 (5-9); PROTEIN,URINE NEGATIVE (NEGATIVE)
[2020-05-17] MEDS ORDERED: ANTACID SUSP 30 ML UDC (MYLANTA) PO ONE (13:00)
[2020-05-17] MEDS ORDERED: KETOROLAC 30 MG/ML VIAL IVP ONE (13:00)
[2020-05-17] MEDS ORDERED: LIDOCAINE 2% VISCOUS 15 ML UDC PO ONE (13:00)
--- NOTE | 2020-05-17 13:03 | ED Abdominal Pain ---
General Chief Complaint: Abdominal/GI Problems Stated Complaint: ABDOMINAL PAIN Nursing Triage Note: PT AMBULATE TO ROOM 06 WITH C/O NAUSEA AND ABD PAIN X1 WEEK. Sepsis Screen: No Definite Risk Source of Information: Patient Exam Limitations: No Limitations History of Present Illness Date Seen by Provider: May 17, 2020 Time Seen by Provider: 13:00 Initial Comments To ER with reports of a one-week history of nausea and upper left abdominal pain or fever. Normal bowel movements. She's been taking dicyclomine which helps. Timing/Duration: 1 Week Severity/Quality: Moderate Location: Generalized Abdomen Radiation: No Radiation Activities at Onset: None Associated Symptoms: Nausea/Vomiting Allergies and Home Medications Allergies Coded Allergies: bee venom protein (honey bee) (Verified Allergy, Unknown, 02/09/20) hydrocodone (Unverified Adverse Reaction, Unknown, nausea, 02/09/20) Home Medications Butalb/Acetaminophen/Caffeine 1 Each Capsule, 1 EACH PO PRN, (Reported) Prednisone 20 Mg Tab, 40 MG PO DAILY Prescribed by: CHUCKY FLORES on 02/14/20 0143 Topiramate 50 Mg Tablet, 50 MG PO DAILY, (Reported) Patient Home Medication List Home Medication List Reviewed: Yes Review of Systems Review of Systems Constitutional: see HPI EENTM: No Symptoms Reported Respiratory: No Symptoms Reported Cardiovascular: No Symptoms Reported Gastrointestinal: Abdominal Pain, Nausea Genitourinary: No Symptoms Reported Skin: no symptoms reported Psychiatric/Neurological: No Symptoms Reported Endocrine: No Symptoms Reported Hematologic/Lymphatic: No Symptoms Reported Past Pxbbmzg-Dienlv-Hqxpyj Hx Patient Social History 2nd Hand Smoke Exposure: No Recent Foreign Travel: No Contact w/Someone Who Travel: No Recent Infectious Disease Expo: No Recent Hopitalizations: No Immunizations Up To Date Tetanus Booster (TDap): Unknown Seasonal Allergies Seasonal Allergies: No Past Medical History Surgeries: No Respiratory: No Cardiac: No Neurological: Yes (CHRONIC DAILY HEADACHES SINCE 2ND GRADE/HIT HER HEAD WHEN FELL OFF SWING) Concussion, Headaches /Migraines Reproductive Disorders: No Genitourinary: No Gastrointestinal: No Musculoskeletal: No Endocrine: No HEENT: No Cancer: No Psychosocial: No Integumentary: No Blood Disorders: No Physical Exam Vital Signs Vital Signs - First Documented 05/17/20 12:43 Temp 36.7 Pulse 100 Resp 18 B/P (MAP) 142/78 (99) O2 Delivery Room Air Capillary Refill : Less Than 3 Seconds Height/Weight/BMI Height: '" Weight: lbs. oz. kg; 43.00 BMI Method: General Appearance: WD/WN, no apparent distress Respiratory: normal breath sounds, no respiratory distress Cardiovascular: regular rate, rhythm, no murmur Gastrointestinal: normal bowel sounds, non tender, soft Extremities: normal range of motion, non-tender 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: alert, normal mood/affect, oriented x 3 Skin: normal color, warm/dry Progress/Results/Core Measures Results/Orders Lab Results Laboratory Tests Test 05/17/20 12:46 Range/Units White Blood Count 8.3 4.3-11.0 10^3/uL Red Blood Count 4.88 4.35-5.85 10^6/uL Hemoglobin 13.4 11.5-16.0 G/DL Hematocrit 42 35-52 % Mean Corpuscular Volume 86 80-99 FL Mean Corpuscular Hemoglobin 28 25-34 PG Mean Corpuscular Hemoglobin Concent 32 32-36 G/DL Red Cell Distribution Width 13.5 10.0-14.5 % Platelet Count 299 130-400 10^3/uL Mean Platelet Volume 10.9 H 7.4-10.4 FL Neutrophils (%) (Auto) 67 42-75 % Lymphocytes (%) (Auto) 24 12-44 % Monocytes (%) (Auto) 5 0-12 % Eosinophils (%) (Auto) 4 0-10 % Basophils (%) (Auto) 0 0-10 % Neutrophils # (Auto) 5.6 1.8-7.8 X 10^3 Lymphocytes # (Auto) 2.0 1.0-4.0 X 10^3 Monocytes # (Auto) 0.4 0.0-1.0 X 10^3 Eosinophils # (Auto) 0.3 0.0-0.3 10^3/uL Basophils # (Auto) 0.0 0.0-0.1 10^3/uL Urine Color YELLOW Urine Clarity CLEAR Urine pH 5.5 5-9 Urine Specific [place] 1.015 L 1.016-1.022 Urine Protein NEGATIVE NEGATIVE Urine Glucose (UA) NEGATIVE NEGATIVE Urine Ketones NEGATIVE NEGATIVE Urine Nitrite NEGATIVE NEGATIVE Urine Bilirubin NEGATIVE NEGATIVE Urine Urobilinogen 0.2 < = 1.0 MG/DL Urine Leukocyte Esterase NEGATIVE NEGATIVE Urine RBC (Auto) 1+ H NEGATIVE Urine RBC 0-2 /HPF Urine WBC 5-10 H /HPF Urine Squamous Epithelial Cells 10-25 H /HPF Urine Crystals NONE /LPF Urine Bacteria LARGE H /HPF Urine Casts NONE /LPF Urine Mucus NEGATIVE /LPF Urine Culture Indicated YES Sodium Level 139 135-145 MMOL/L Potassium Level 3.8 3.6-5.0 MMOL/L Chloride Level 108 H 98-107 MMOL/L Carbon Dioxide Level 23 21-32 MMOL/L Anion Gap 8 5-14 MMOL/L Blood Urea Nitrogen 7 7-18 MG/DL Creatinine 0.80 0.60-1.30 MG/DL Estimat Glomerular Filtration Rate > 60 BUN/Creatinine Ratio 9 Glucose Level 131 H 70-105 MG/DL Calcium Level 9.3 8.5-10.1 MG/DL Corrected Calcium 9.2 8.5-10.1 MG/DL Total Bilirubin 0.5 0.1-1.0 MG/DL Aspartate Amino Transf (AST/SGOT) 19 5-34 U/L Alanine Aminotransferase (ALT/SGPT) 23 0-55 U/L Alkaline Phosphatase 76 40-136 U/L Total Protein 7.0 6.4-8.2 GM/DL Albumin 4.1 3.2-4.5 GM/DL Lipase 25 8-78 U/L Serum Test, Qualitative NEGATIVE NEGATIVE My Orders Orders - GRETTA GONZALES APRN Cbc With Automated Diff (05/17/20 12:36) Comprehensive Metabolic Panel (05/17/20 12:36) Ua Culture If Indicated (05/17/20 12:36) Hcg,Qualitative Serum (05/17/20 12:36) Ed Iv/Invasive Line Start (05/17/20 12:36) Lipase (05/17/20 12:49) Ketorolac Injection (Toradol Injection) (05/17/20 13:00) Antacid Suspension (Mylanta Suspension (05/17/20 13:00) Lidocaine 2% Viscous 15 Ml (Xylocaine Vi (05/17/20 13:00) Ct Abdomen/Pelvis W (05/17/20 12:55) Iohexol Injection (Omnipaque 350 Mg/Ml 1 (05/17/20 13:15) Received Contrast (Hold Metformin- Contr (05/17/20 13:15) Sodium Chloride Flush (Catheter Flush Sy (05/17/20 13:15) Ns (Ivpb) (Sodium Chloride 0.9% Ivpb Bag (05/17/20 13:15) Urine Culture (05/17/20 12:46) Medications Given in ED Current Medications Medications Dose Ordered Sig/David Route Start Time Stop Time Status Last Admin Dose Admin Al Hydrox/Mg Hydrox/Simethicone 30 ml ONCE ONCE PO 05/17/20 13:00 05/17/20 13:01 DC 05/17/20 13:07 30 ML Iohexol 100 ml ONCE ONCE IV 05/17/20 13:15 05/17/20 13:16 DC 05/17/20 13:27 100 ML Ketorolac Tromethamine 15 mg ONCE ONCE IVP 05/17/20 13:00 05/17/20 13:01 DC 05/17/20 13:06 15 MG Lidocaine HCl 10 ml ONCE ONCE PO 05/17/20 13:00 05/17/20 13:01 DC 05/17/20 13:07 10 ML Sodium Chloride 10 ml NEEDED PRN IV 05/17/20 13:15 05/17/20 13:27 10 ML Sodium Chloride 100 ml ONCE ONCE IV 05/17/20 13:15 05/17/20 13:16 DC 05/17/20 13:27 80 ML Vital Signs/I&O 05/17/20 12:43 Temp 36.7 Pulse 100 Resp 18 B/P (MAP) 142/78 (99) O2 Delivery Room Air Blood Pressure Mean: 99 Departure Communication (Admissions) NAME: MATY HERNANDEZ [facility] REC#: [id number] PT STATUS: REG ER : 1995 PHYSICIAN: GRETTA GONZALES [employer] INSURANCE CLAIM EXAMINER ADMIT DATE: 05/17/20/ER Draft Date of Exam:05/17/20 CT ABDOMEN/PELVIS W PROCEDURE: CT abdomen and pelvis with contrast. TECHNIQUE: Multiple contiguous axial images were obtained through the abdomen and pelvis after administration of intravenous contrast. Auto Exposure Controls were utilized during the CT exam to meet ALARA standards for radiation dose reduction. DATE: May 17, 2020. COMPARISON: None. INDICATION: 25-year-old female, mid and upper abdominal pain for 6 months. FINDINGS: The visualized portions of the lung bases are clear. The heart is not enlarged. There is no identified pericardial effusion. The liver is normal in size and contour. There is no identified liver lesion. The main, right, and left portal veins are patent. The gallbladder is unremarkable. There is no intrahepatic or extrahepatic bile duct dilation. The main pancreatic duct is not abnormally dilated. Unremarkable appearance of the pancreatic parenchyma. The spleen is normal in size. The adrenal glands are unremarkable. Unremarkable appearance of the renal parenchyma. The urinary collecting systems are not distended. There is no identified renal or ureteral stone. The urinary bladder is underdistended and not well evaluated. The uterus and adnexa are unremarkable in appearance for patient age. There is fatty wall thickening of the transverse colon, consistent with chronic colitis. There is no identified nonfatty wall thickening of the colon to suggest an active colitis. The terminal ileum is unremarkable in appearance. The appendix is well-seen on axial image 56 and adjacent sequential images. There is no evidence of acute appendicitis. There is no free intraperitoneal air. There is no drainable fluid collection. There is no free pelvic fluid. There is no identified abnormally enlarged lymph node in the abdomen or pelvis which meets CT size criteria for adenopathy. There is no identified acute bony abnormality. The sacroiliac joints are unremarkable in appearance. IMPRESSION: 1. No acute abnormality in the abdomen or pelvis. 2. Fatty wall thickening of the transverse colon, compatible with chronic colitis. No evidence of active colitis. There is no contiguous involvement of the colon to the level of the rectum and the terminal ileum has an unremarkable appearance. Dictated on workstation # [id number] Dict: 05/17/20 1342 Trans: 05/17/20 1352 [id number] Interpreted by: CLINT WOLF MD Electronically signed by: Impression Primary Impression: Abdominal cramping Additional Impression: Irritable bowel syndrome Disposition: HOME, SELF-CARE Condition: Stable Departure-Patient Inst. Decision time for Depature: 13:01 Referrals[place] [facility] [place] Primary Care Physician DALLAS BOYLE BRETT D DO KIDO, TAKAAKI MD Patient Instructions: IBS Diet Add. Discharge Instructions: Call your regular doctor this week to make an appointment to be seen for follow- up. Return to ER for any concerns. All discharge instructions reviewed with patient and/or family. Voiced understanding. Her CT shows some thickening of the colon which could represent a inflammation of the colon called colitis. Follow-up with one of the surgeons listed to schedule a colonoscopy. Work/School Note: Work Release Form Date Seen in the Emergency Department: May 17, 2020 Return to Work: May 18, 2020 GRETTA GONZALES APRN May 17, 2020 13:03
[2020-05-17 13:06] LABS: ALBUMIN 4.1 GM/DL (3.2-4.5)
[2020-05-17 13:07] LABS: CHLORIDE 108 MMOL/L (98-107); POTASSIUM 3.8 MMOL/L (3.6-5.0); SODIUM 139 MMOL/L (135-145)
[2020-05-17 13:08] LABS: CALCIUM 9.3 MG/DL (8.5-10.1)
[2020-05-17 13:09] LABS: GLUCOSE 131 MG/DL (70-105)
[2020-05-17 13:10] LABS: CARBON DIOXIDE 23 MMOL/L (21-32)
[2020-05-17 13:11] LABS: BILIRUBIN,TOTAL 0.5 MG/DL (0.1-1.0)
[2020-05-17 13:12] LABS: ALKALINE PHOSPHATASE 76 U/L (40-136)
[2020-05-17 13:13] LABS: GFR ESTIMATED > 60
[2020-05-17 13:14] LABS: BUN/CREATININE RATIO 9
[2020-05-17] MEDS ORDERED: IOHEXOL 350 MG/ML 100 ML (OMNIPAQUE 350) VIAL IV ONE (13:15)
[2020-05-17] MEDS ORDERED: NS 100 ML (IVPB) BAG IV ONE (13:15)
[2020-05-17] MEDS ORDERED: CATHETER FLUSH 10 ML SYR IV PRN (13:15)
[2020-05-17] MEDS ORDERED: HOLD METFORMIN - RECEIVED CONTRAST 20 ML VIAL IV SCH (13:15)
[2020-05-17 13:16] LABS: ALANINE AMINOTRANSFERASE 23 U/L (0-55); LIPASE 25 U/L (8-78)
[2020-05-17 13:24] LABS: RBC,URINE 0-2 /HPF
[2020-05-17 13:25] LABS: BACTERIA,URINE LARGE /HPF
--- NOTE | 2020-05-17 13:52 | Diagnostic Imaging Report ---
PROCEDURE: CT abdomen and pelvis with contrast. TECHNIQUE: Multiple contiguous axial images were obtained through the abdomen and pelvis after administration of intravenous contrast. Auto Exposure Controls were utilized during the CT exam to meet ALARA standards for radiation dose reduction. DATE: May 17, 2020. COMPARISON: None. INDICATION: 25-year-old female, mid and upper abdominal pain for 6 months. FINDINGS: The visualized portions of the lung bases are clear. The heart is not enlarged. There is no identified pericardial effusion. The liver is normal in size and contour. There is no identified liver lesion. The main, right, and left portal veins are patent. The gallbladder is unremarkable. There is no intrahepatic or extrahepatic bile duct dilation. The main pancreatic duct is not abnormally dilated. Unremarkable appearance of the pancreatic parenchyma. The spleen is normal in size. The adrenal glands are unremarkable. Unremarkable appearance of the renal parenchyma. The urinary collecting systems are not distended. There is no identified renal or ureteral stone. The urinary bladder is underdistended and not well evaluated. The uterus and adnexa are unremarkable in appearance for patient age. There is fatty wall thickening of the transverse colon, consistent with chronic colitis. There is no identified nonfatty wall thickening of the colon to suggest an active colitis. The terminal ileum is unremarkable in appearance. The appendix is well-seen on axial image 56 and adjacent sequential images. There is no evidence of acute appendicitis. There is no free intraperitoneal air. There is no drainable fluid collection. There is no free pelvic fluid. There is no identified abnormally enlarged lymph node in the abdomen or pelvis which meets CT size criteria for adenopathy. There is no identified acute bony abnormality. The sacroiliac joints are unremarkable in appearance. IMPRESSION: 1. No acute abnormality in the abdomen or pelvis. 2. Fatty wall thickening of the transverse colon, compatible with chronic colitis. No evidence of active colitis. There is no contiguous involvement of the colon to the level of the rectum and the terminal ileum has an unremarkable appearance. Dictated by: Dictated on workstation # [id number]
[2020-05-17 14:01] VITALS: BP 122/77
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
[2020-05-23] MEDS ORDERED: VENL75CA93 PO (12:18)
[2020-05-23] MEDS ORDERED: DICY10CA12 PO (12:18)
== END 2020-05-17 14:01 | disposition home or self-care (01) ==
LOC: EDUNIT# 12:32 → ER 12:34
DX: K58.9 Irritable bowel syndrome, unspecified (principal); G43.909 Migraine, unspecified, not intractable, without status migrainosus; Z88.5 Allergy status to narcotic agent; Z79.52 Long term (current) use of systemic steroids; Z87.820 Personal history of traumatic brain injury
CPT/HCPCS: 36415; 74177; 80053; 81000; 83690; 84703; 85025; 87088

== ENCOUNTER 2020-05-24 05:30 | Outpatient (RCR) | payer MEDICAID ==
[~2020-05-24] VITALS: Ht 157.5 cm; Wt 112.6 kg
[~2020-05-24 05:30] MED LIST changes: +DICY10CA12 PO; +VENL75CA93 PO
[2020-05-26] MEDS ORDERED: PANT40TA2 PO (13:31)
== END 2020-05-24 12:27 | disposition home or self-care (01) ==
LOC: PREOP 05:30
PROVIDERS: ATTEND Surgery
DX: Z01.818 Encounter for other preprocedural examination (principal); Z11.59 Encounter for screening for other viral diseases
CPT/HCPCS: 87635

== ENCOUNTER 2020-05-26 12:45 | Day surgery (SDC) | payer MEDICAID ==
[~2020-05-26] VITALS: Ht 157.5 cm; Wt 112.6 kg
[2020-05-26] MEDS ORDERED: NS IV 500 ML 500 ML IV PRN (12:59)
[2020-05-26] MEDS ORDERED: LIDOCAINE JELLY 2% 6 ML SYRINGE MM PRN (13:00)
[2020-05-26] MEDS ORDERED: MIDAZOLAM 5 MG/5 ML (VERSED) VIAL IV PRN (13:00)
[2020-05-26] MEDS ORDERED: fentaNYL INJECTION 100 MCG/2 ML AMP IVP ONE (13:00)
[2020-05-26] MEDS ORDERED: HURRICAINE EXT TUBE (BENZOCAINE) XX PRN (13:00)
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
[2020-05-26 13:10] VITALS: BP 112/78
[2020-05-26] MEDS ORDERED: ACETAMINOPHEN 325 MG TABLET PO PRN (13:30)
[2020-05-26] MEDS ORDERED: morphine INJ 10 MG/ML 1ML (SYR OR VIAL) IVP PRN ×2 (13:30)
[2020-05-26] MEDS ORDERED: ONDANSETRON 4 MG/2 ML (SDV) Z0FRAN IVP PRN (13:30)
--- NOTE | 2020-05-26 13:30 | Progress Note-Pre Operative ---
Pre-Operative Progress Note H&P Reviewed The H&P was reviewed, patient examined and no changes noted. Date Seen by Provider: May 26, 2020 Time Seen by Provider: 13:00 Date H&P Reviewed: May 26, 2020 Time H&P Reviewed: 13:00 Pre-Operative Diagnosis: GERD, abd pain ESTELA CHOU MD May 26, 2020 13:30
--- NOTE | 2020-05-26 13:30 | Conscious Sedation/ASA ---
Conscious Sedation Pre-Proced Time 13:00 ASA Score 2 For ASA 3 and 4: Consider anesthesia and medical clearance. Also, for patients with a history of failed moderate sedation consider anesthesia. Airway Lungs Heart ASA score ASA 1: a normal healthy patient ASA 2: a patient with a mild systemic disease (mid diabetes, controlled hypertension, obesity ASA 3: a patient with a severe systemic disease that limits activity (angina, COPD, prior Myocardial infarction) ASA 4: a patient with an incapacitating disease that is a constant threat to life (CHF, renal failure) ASA 5: a moribund patient not expected to survive 24 hrs. (ruptured aneurysm) ASA 6: a declared brain- patient whose organs are being harvested. For emergent operations, add the letter E after the classification Mallampati Classification Grade 2 Sedation Plan Analgesia, Amnesia, Plan communicated to team members, Discussed options with patient/fam, Discussed risks with patient/fam The patient is an appropriate candidate to undergo the planned procedure, sedation, and anesthesia. The patient immediately re-assessed prior to indication. ESTELA CHOU MD May 26, 2020 13:30
[2020-05-26] MEDS ORDERED: PANT40TA2 PO (13:31)
--- NOTE | 2020-05-26 13:32 | Discharge Inst-Surgical ---
D/C Lap Instructions-KIDWolf New, Converted, or Re-Newed RX: RX on Chart Follow Up Activity as tolerated High Fiber Diet 25g or more per day Avoid Alcohol, Caffeine, Spicy Susank and Acid foods. Drink 64 fluid oz or more of fluids per day. Symptoms to Report: Fever over 101 degree F, Nausea/Vomiting If any problems/questions: Contact your physician or go to Emergency Room ESTELA CHOU MD May 26, 2020 13:32
[2020-05-26] MEDS ORDERED: PROPOFOL INJECTION 50 ML IV ONE ×2 (13:49→14:14)
[2020-05-26] MEDS ORDERED: MIDAZOLAM 2 MG/2 ML (VERSED) VIAL ONE (13:50)
[2020-05-26] MEDS ORDERED: LIDOCAINE JELLY 2% 6 ML SYRINGE ONE (13:56)
[2020-05-26] MEDS ORDERED: HURRICAINE EXT TUBE (BENZOCAINE) ONE (13:56)
[2020-05-26 14:25] VITALS: BP 114/66
[2020-05-26 14:30] VITALS: BP 109/64
[2020-05-26 14:35] VITALS: BP_SYST 118; BP_SYST 119; BP_DIAS 65; BP_DIAS 70
--- NOTE | 2020-05-26 14:37 | Anesthesia-General Post-Op ---
MAC Patient Condition Mental Status/LOC: Same as Preop Cardiovascular: Satisfactory Nausea/Vomiting: Absent Respiratory: Satisfactory Pain: Controlled Complications: Absent Post Op Complications Complications None Follow Up Care/Instructions Patient Instructions None needed. Anesthesiology Discharge Order Discharge Order Patient is doing well, no complaints, stable vital signs, no apparent adverse anesthesia problems. No complications reported per nursing. RL SLAUGHTER OCCUPATIONAL PHYSICIAN May 26, 2020 14:37
[2020-05-26 15:04] VITALS: BP 109/78
[2020-05-26 15:06] VITALS: BP 109/78
--- NOTE | 2020-05-26 21:37 | OPERATIVE REPORT ---
DATE OF SERVICE: 05/26/2020 ATTENDING PRIMARY LIVESTOCK EXHIBITOR: [facility]. PREOPERATIVE DIAGNOSES: Crampy abdominal pain, nausea, transverse colonic colitis identified on CT scan. POSTOPERATIVE DIAGNOSES: Reflux esophagitis stage II, small hiatal hernia 1 cm in size, moderate gastritis. Colon and rectum appeared normal. PROCEDURE: EGD with biopsy, colonoscopy. SURGEON: Estela Chou MD ANESTHESIA: Monitored anesthesia care. ESTIMATED BLOOD LOSS: Minimal. FINDINGS: Same as postoperative diagnoses. DISPOSITION: The patient tolerated the procedure well. INDICATIONS: The patient is a 25-year-old female who was seen in the Emergency Department with upper abdominal pain for the past six months; however, this was more severe that day. She reports pain in the epigastric region; however, also bilateral upper abdominal quadrants. She does not report any association with food. She does report that caffeine attempt to make it worse. She also does have some reflux on intermittent basis. She also has had intermittent episodes of diarrhea, constipation as well as fevers and chills. She was seen in the Emergency Department where a CT scan was performed, which did show thickening of the transverse colon, which may have indicated some form of colitis. DESCRIPTION OF PROCEDURE: The patient was brought to the endoscopy suite, laid in the left lateral decubitus position with head slightly elevated. After adequate IV pain and sedative medications and monitored anesthesia care, the mouthpiece was applied. The endoscope was placed in the mouth, visualizing the pharynx and hypopharyngeal region. Vocal cords, epiglottis and vallecula identified and appeared to be normal. Endoscope was gently abated esophageal opening and esophagus insufflated. It was advanced to the first, second and third portion of esophagus at the level of the GE junction, reflux esophagitis stage II identified. There were no ulcers or strictures identified in this region. A biopsy was taken with forceps with visualization of good hemostasis. The endoscope was then advanced into the stomach and endoscope retroflexed, visualizing a small hiatal hernia 1 cm in size. There was a moderate gastritis more towards the stomach antrum. No formal ulcerations, polyps, or any neoplasms. A biopsy was taken of the antrum to rule out H. pylori with visualization of good hemostasis. Endoscope was then advanced to the pylorus and the first and second portion of the duodenum, which appeared normal with no distal obstructions. The endoscope was then slowly withdrawn while taking a second look and suctioning of residual air with no additional findings. Under the same anesthesia, we then proceeded with the colonoscopy portion of procedure. A digital rectal examination was performed, which did not reveal any significant hemorrhoids. Normal sphincter tone was felt and there were no palpable masses. The endoscope was then intubated and anus and rectum gently insufflated. The endoscope was then advanced to the valves of Geron[place] of rectum with no polyps or any neoplasms identified as well as no mucosal inflammatory changes. The endoscope was then advanced through the remainder of the descending, transverse and ascending colon to the cecum. These segments were normal as well. There were no mucosal inflammatory changes identified anywhere throughout the colon or rectum. The endoscope was then slowly withdrawn while taking a second look and suctioning of residual air with no additional findings. The patient tolerated the procedure well. For her reflux esophagitis as well as gastritis, we will recommend the necessary lifestyle and diet accommodation including small and more frequent meals, avoidance of eating at night as well as head elevation while lying supine. She also needs to avoid alcohol and caffeinated beverages, spicy, greasy and acidic foods. We will also start her on Protonix 40 mg daily and other recommendation would be to start and maintain a regularly scheduled diet and exercise regimen for weight loss and maintenance, which would help with reflux as well. If she continues to have crampy abdominal pain, this may be a gallbladder etiology and we will proceed with an ultrasound of the gallbladder as well as possible HIDA scan to look for biliary dyskinesia. Job ID: [id number] DocumentID: [id number] Dictated Date: 05/26/2020 14:33:20 Computer Game Designer Date: 05/26/2020 21:36:30 Dictated By: ESTELA CHOU MD
== END 2020-05-26 15:20 | disposition home or self-care (01) ==
LOC: ENDO 12:45
PROVIDERS: ATTEND Surgery
DX: K29.50 Unspecified chronic gastritis without bleeding (principal); K21.0 Gastro-esophageal reflux disease with esophagitis; K44.9 Diaphragmatic hernia without obstruction or gangrene; K52.9 Noninfective gastroenteritis and colitis, unspecified; B96.81 Helicobacter pylori [H. pylori] as the cause of diseases classified elsewhere; G43.909 Migraine, unspecified, not intractable, without status migrainosus; E66.9 Obesity, unspecified; Z68.42 Body mass index [BMI] 45.0-49.9, adult; Z79.899 Other long term (current) drug therapy; Z88.5 Allergy status to narcotic agent; Z91.030 Bee allergy status; Z83.3 Family history of diabetes mellitus
CPT/HCPCS: 88305

== ENCOUNTER → 2020-07-14 | Outpatient (CLI) | payer MEDICAID ==
[~2020-07-14] MED LIST changes: +PANT40TA2 PO
--- NOTE | 2020-07-14 09:50 | Diagnostic Imaging Report ---
PROCEDURE: US Gallbladder. TECHNIQUE: Multiple real-time grayscale images were obtained over the right upper quadrant in various projections. INDICATION: Right upper quadrant pain with nausea and vomiting. FINDINGS: The liver is normal in size without focal lesions. No biliary duct dilatation. Common bile that measures 3 mm. There is no cholelithiasis, gallbladder wall thickening or pericholecystic fluid. The pancreas is not well visualized due to bowel gas. The aorta is nonaneurysmal. IVC is patent. Right kidney is normal. No ascites. IMPRESSION: Unremarkable right upper quadrant ultrasound. Dictated by: Dictated on workstation # [id number]
== END ==
LOC: RAD 09:08
PROVIDERS: ATTEND Surgery
DX: R10.11 Right upper quadrant pain (principal); R11.2 Nausea with vomiting, unspecified
CPT/HCPCS: 76705

== ENCOUNTER 2020-07-16 12:16 | Emergency (ER) | payer MEDICAID ==
[~2020-07-16] VITALS: Ht 157 cm; Wt 113.0 kg
[2020-07-16 12:17] VITALS: BP 150/95
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
--- NOTE | 2020-07-16 12:30 | ED EENT ---
History of Present Illness General Stated Complaint: SORE THROAT/CONGESTION Source: patient Exam Limitations: no limitations History of Present Illness Date Seen by Provider: Jul 16, 2020 Time Seen by Provider: 12:09 Initial Comments Patient presents to ER by private conveyance with chief complaint that since last night she's had swollen painful throat with painful swallowing. She is able to swallow as well as no difficulty breathing. She has a history of multiple incidences of strep throat. No fever chills or cough. She has not taken any antipyretics or pain medicines. Allergies and Home Medications Allergies Coded Allergies: bee venom protein (honey bee) (Verified Allergy, Unknown, 02/09/20) hydrocodone (Unverified Adverse Reaction, Unknown, nausea, 02/09/20) Home Medications Dicyclomine HCl 10 Mg Capsule, 10 MG PO QID PRN for STOMACH UPSET, (Reported) Pantoprazole Sodium 40 Mg Tablet.dr, 40 MG PO DAILY Prescribed by: ESTELA CHOU on 05/26/20 1331 Topiramate 50 Mg Tablet, 50 MG PO DAILY, (Reported) Venlafaxine HCl 75 Mg Cap.er.24h, 75 MG PO DAILY, (Reported) Patient Home Medication List Home Medication List Reviewed: Yes Review of Systems Review of Systems Constitutional: No chills, No diaphoresis, No fever Eyes: Denies Blurred Vision, Denies Drainage Ears: Denies Dizziness Nose: denies clots, denies congestion Mouth: see HPI; denies clots, denies swelling Throat: pain, swelling; denies neck stiffness, denies hoarse, denies muffled Respiratory: No cough, No short of breath Cardiovascular: No edema, No syncope All Other Systems Reviewed Negative Unless Noted: Yes Past Eozrvxg-Txkyyk-Jpkfen Hx Patient Social History Alcohol Use: Denies Use Recreational Drug Use: No Smoking Status: Never a Smoker 2nd Hand Smoke Exposure: No Recent Foreign Travel: No Contact w/Someone Who Travel: No Recent Hopitalizations: No Immunizations Up To Date Tetanus Booster (TDap): Unknown Seasonal Allergies Seasonal Allergies: No Past Medical History Surgeries: No Respiratory: No Cardiac: No Neurological: Yes (CHRONIC DAILY HEADACHES SINCE 2ND GRADE/HIT HER HEAD WHEN FELL OFF SWING) Concussion, Headaches /Migraines Reproductive Disorders: No Genitourinary: No Gastrointestinal: Yes Gastroesophageal Reflux Musculoskeletal: No Endocrine: No HEENT: No Cancer: No Psychosocial: No Integumentary: No Blood Disorders: No Physical Exam Vital Signs Vital Signs - First Documented 07/16/20 12:17 Temp 36.7 Pulse 97 Resp 16 B/P (MAP) 150/95 (113) Pulse Ox 97 O2 Delivery Room Air Height, Weight, BMI Height: '" Weight: lbs. oz. kg; 45.39 BMI Method: General Appearance: WD/WN, no apparent distress Eyes: bilateral eye normal inspection, bilateral eye PERRL, bilateral eye EOMI Ears: bilateral ear auricle normal, bilateral ear canal normal, bilateral ear TM normal (bilateral otosclerosis without injection, erythema or tenderness to manipulation.) Nose: normal inspection; No active bleeding Mouth/Throat: No tonsillar exudate; tonsillar swelling (erythema) Neck: non-tender, full range of motion, supple, normal inspection Cardiovascular: normal peripheral pulses, regular rate, rhythm Progress/Results/Core Measures Results/Orders Lab Results Laboratory Tests Test 07/16/20 12:20 Range/Units Group A Streptococcus Screen NEGATIVE NEGATIVE My Orders Orders - SULY ALCANTARA Rapid Strep A Screen (07/16/20 12:21) Vital Signs/I&O 07/16/20 12:17 Temp 36.7 Pulse 97 Resp 16 B/P (MAP) 150/95 (113) Pulse Ox 97 O2 Delivery Room Air Departure Impression Primary Impression: Pharyngitis Qualified Codes: J02.9 - Acute pharyngitis, unspecified Disposition: 01 HOME, SELF-CARE Condition: Stable Departure-Patient Inst. Decision time for Depature: 13:28 Referrals: [facility]/K[facility] (PCP) Primary Care Physician SWATHI TOBIAS (Family) Primary Care Physician Patient Instructions: Sore Throat, Adult (DC) Add. Discharge Instructions: Salt water gargles as frequently as necessary for swelling and pain in the throat. Drink plenty of fluids. Tylenol 1000 mg every 8 hours as necessary for pain. Ibuprofen 800 mg every 8 hours as necessary for pain. Chloraseptic sprays and throat lozenges liberally. We will call you in the next 2 days if your throat culture grows out a bacteria and put on an antibiotic. If you do not hear from us then it did not grow anything out. Work/School Note: Work Release Form Date Seen in the Emergency Department: Jul 16, 2020 Return to Work: Jul 17, 2020 Restrictions: No Restrictions SULY ALCANTARA Jul 16, 2020 12:30
== END 2020-07-16 13:34 | disposition home or self-care (01) ==
LOC: EDUNIT# 12:16 → ER 12:17
DX: J02.9 Acute pharyngitis, unspecified (principal); G43.909 Migraine, unspecified, not intractable, without status migrainosus; K21.9 Gastro-esophageal reflux disease without esophagitis; Z87.820 Personal history of traumatic brain injury; Z88.5 Allergy status to narcotic agent
CPT/HCPCS: 87430; 99284

== ENCOUNTER 2020-08-09 11:39 | Emergency (ER) | payer MEDICAID ==
[~2020-08-09] VITALS: Ht 157.4 cm; Wt 109.0 kg
[2020-08-09] MEDS ORDERED: KETOROLAC 60 MG/2 ML VIAL IM ONE (13:45)
[2020-08-09] MEDS ORDERED: PROCHLORPERAZINE 10 MG/2ML INJ (COMPAZINE) IM ONE (13:45)
[2020-08-09] MEDS ORDERED: diphenhydrAMINE 50 MG/ML INJ (BENADRYL) IM ONE (13:45)
--- NOTE | 2020-08-09 13:48 | ED General ---
General Chief Complaint: Neurological Problems Stated Complaint: MIGRAINE Nursing Triage Note: AMB TO ROOM WITH C/O HEADACHE FOR 24 HOURS. HAS TAKEN OTC PAIN MEDS THAT HABE NOT HELPED Nursing Sepsis Screen: No Definite Risk Source of Information: Patient Exam Limitations: No Limitations History of Present Illness Date Seen by Provider: Aug 09, 2020 Time Seen by Provider: 13:33 Initial Comments 25 year old female who present to the emergency room for c/o migraine headache for the past 24 hours. She reports that she suffers from migraines and this is very similar to her previous migraines. She reports that she has had nausea. Denies vomiting. Denies fevers. Reports taking tylenol for pain. Timing/Duration: 24 Hours Associated Systoms: Headaches Allergies and Home Medications Allergies Coded Allergies: bee venom protein (honey bee) (Verified Allergy, Unknown, 02/09/20) hydrocodone (Unverified Adverse Reaction, Unknown, nausea, 02/09/20) Home Medications Dicyclomine HCl 10 Mg Capsule, 10 MG PO QID PRN for STOMACH UPSET, (Reported) Pantoprazole Sodium 40 Mg Tablet.dr, 40 MG PO DAILY Prescribed by: ESTELA CHOU on 05/26/20 1331 Topiramate 50 Mg Tablet, 50 MG PO DAILY, (Reported) Venlafaxine HCl 75 Mg Cap.er.24h, 75 MG PO DAILY, (Reported) Patient Home Medication List Home Medication List Reviewed: Yes Review of Systems Review of Systems Constitutional: see HPI; No chills, No fever Gastrointestinal: nausea Psychiatric/Neurological: See HPI, Headache All Other Systems Reviewed Negative Unless Noted: Yes Past Dxfwsqu-Fwrinm-Okvvcx Hx Past Med/Social Hx: Reviewed Nursing Past Med/Soc Hx Patient Social History 2nd Hand Smoke Exposure: No Recent Foreign Travel: No Contact w/Someone Who Travel: No Recent Infectious Disease Expo: No Recent Hopitalizations: No Immunizations Up To Date Tetanus Booster (TDap): Unknown Seasonal Allergies Seasonal Allergies: No Past Medical History Surgeries: No Respiratory: No Cardiac: No Neurological: Yes (CHRONIC DAILY HEADACHES SINCE 2ND GRADE/HIT HER HEAD WHEN FELL OFF SWING) Concussion, Headaches /Migraines Reproductive Disorders: No Genitourinary: No Gastrointestinal: Yes Gastroesophageal Reflux Musculoskeletal: No Endocrine: No HEENT: No Cancer: No Psychosocial: No Integumentary: No Blood Disorders: No Family Medical History Reviewed Nursing Family Hx Physical Exam Vital Signs Vital Signs - First Documented 9/9/20 13:10 Temp 36.7 Pulse 74 Resp 18 B/P (MAP) 122/86 (98) Capillary Refill : Less Than 3 Seconds Height, Weight, BMI Height: '" Weight: lbs. oz. kg; 43.00 BMI Method: General Appearance: No Apparent Distress, WD/WN ( ) HEENT: PERRL/EOMI, TMs Normal, Normal ENT Inspection, Pharynx Normal Respiratory: Chest Non Tender, Lungs Clear, Normal Breath Sounds, No Accessory Muscle Use, No Respiratory Distress Cardiovascular: Regular Rate, Rhythm, No Edema, No Gallop, No JVD, No Murmur, Normal Peripheral Pulses Gastrointestinal: Normal Bowel Sounds, No Organomegaly, No Pulsatile Mass, Non Tender, Soft Extremity: Normal Capillary Refill 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: Alert, Oriented x3, Normal Mood/Affect Skin: Normal Color, Warm/Dry Progress/Results/Core Measures Suspected Sepsis Recent Fever Within 48 Hours: No Infection Criteria Present: None New/Unexplained Altered Menta: No Sepsis Screen: No Definite Risk SIRS Temperature: Pulse: 74 Respiratory Rate: 18 Blood Pressure 122 /86 Mean: 98 Results/Orders My Orders Orders - FAM GALINDO Ketorolac Injection (Toradol Injection) (08/09/20 13:45) Prochlorperazine Injection (Compazine In (08/09/20 13:45) Diphenhydramine Injection (Benadryl Inje (08/09/20 13:45) Medications Given in ED Current Medications Medications Dose Ordered Sig/David Route Start Time Stop Time Status Last Admin Dose Admin Diphenhydramine HCl 50 mg ONCE ONCE IM 08/09/20 13:45 08/09/20 13:46 DC 08/09/20 13:43 50 MG Ketorolac Tromethamine 60 mg ONCE ONCE IM 08/09/20 13:45 08/09/20 13:46 DC 08/09/20 13:45 60 MG Prochlorperazine Edisylate 10 mg ONCE ONCE IM 08/09/20 13:45 08/09/20 13:46 DC 08/09/20 13:44 10 MG Vital Signs/I&O 08/09/20 13:10 Temp 36.7 Pulse 74 Resp 18 B/P (MAP) 122/86 (98) Capillary Refill : Less Than 3 Seconds Blood Pressure Mean: 98 Departure Impression Primary Impression: Migraine Disposition: 01 HOME, SELF-CARE Condition: Stable/Unchanged Departure-Patient Inst. Decision time for Depature: 13:51 Referrals: [facility] (PCP) Primary Care Physician SWATHI TOBIAS (Family) Primary Care Physician Patient Instructions: Migraines (DC) Add. Discharge Instructions: You may continue to use ibuprofen and Tylenol as needed for pain relief. Return back to the emergency room for worsening symptoms or concerns as needed. Follow- up with your primary care provider within 1 week for recheck. All discharge instructions reviewed with patient and/or family. Voiced understanding. FAM GALINDO Aug 09, 2020 13:48
[2020-08-09 14:24] VITALS: BP 136/88
== END 2020-08-09 14:24 | disposition home or self-care (01) ==
LOC: EDUNIT# 11:39 → ER 11:41
DX: G43.909 Migraine, unspecified, not intractable, without status migrainosus (principal); K21.9 Gastro-esophageal reflux disease without esophagitis; Z87.820 Personal history of traumatic brain injury; Z20.828 Contact with and (suspected) exposure to other viral communicable diseases; Z91.030 Bee allergy status; Z88.5 Allergy status to narcotic agent
CPT/HCPCS: 99284

== ENCOUNTER → 2020-08-14 | Outpatient (CLI) | payer MEDICAID ==
[~2020-08-14] MED LIST changes: +CATHETER FLUSH 10 ML SYR IV PRN
--- NOTE | 2020-08-14 11:47 | Diagnostic Imaging Report ---
INDICATION: Right upper quadrant pain. TECHNIQUE: Patient was administered 5.5 mCi technetium 99m Choletec intravenously and imaging over the abdomen was performed. At 45 minutes, patient ingested one can of Ensure and gallbladder ejection fraction was calculated. FINDINGS: There is homogeneous uptake of activity by the liver with prompt excretion of activity into the common duct and gallbladder. There is normal passage of activity into the small bowel. Small amount of activity is seen within the stomach, consistent with bile reflux. Gallbladder ejection fraction is normal at 73%. IMPRESSION: 1. Patent cystic duct and common bile duct. 2. Normal gallbladder ejection fraction of 73%. 3. Mild bile reflux into the stomach. Dictated by: Dictated on workstation # [id number]
== END ==
LOC: CARD 10:00
PROVIDERS: ATTEND Surgery
DX: K21.9 Gastro-esophageal reflux disease without esophagitis (principal); R10.11 Right upper quadrant pain
CPT/HCPCS: 78227; A9537

== ENCOUNTER → 2021-01-02 | Outpatient (CLI) | payer MEDICAID ==
[~2021-01-02] MED LIST changes: -CATHETER FLUSH 10 ML SYR IV PRN
--- NOTE | 2021-01-02 16:02 | Diagnostic Imaging Report ---
INDICATION: Lump in the right breast. TECHNIQUE: Sonographic interrogation of area of lump in the right breast was performed. FINDINGS: The palpable area corresponds to the 12-3 o'clock location. No sonographic abnormality is detected. No solid or cystic mass is detected. IMPRESSION: No sonographic abnormality is detected. Continued close clinical and self breast exams are recommended to confirm stability of the area of palpable abnormality. ACR BI-RADS Category 1: Negative. Dictated by: Dictated on workstation # [id number]
== END ==
LOC: RAD 13:53
PROVIDERS: ATTEND Nurse Practitioner
DX: N63.10 Unspecified lump in the right breast, unspecified quadrant (principal)

== ENCOUNTER 2021-01-07 16:41 | Emergency (ER) | payer MEDICAID ==
[~2021-01-07] VITALS: Ht 157.5 cm; Wt 113.4 kg
[2021-01-07 16:51] VITALS: BP 135/89
--- NOTE | 2021-01-07 17:07 | ED Integumentary General ---
General Chief Complaint: Skin/Wound Problems Stated Complaint: PIERCING POSSIBLY INFECTED Source: patient Exam Limitations: no limitations History of Present Illness Date Seen by Provider: Jan 07, 2021 Time Seen by Provider: 16:58 Initial Comments Patient is a 25-year-old female who presents to the emergency department today with a chief concern for infection of her left nipple ring. Patient states that she has had her bilateral nipples pierced for the last 3 years and has never had an issue she states over the last 3 days however she has noticed some drainage from the lateral aspect of the left nipple. She denies any increased pain at the area of the piercing. She denies fever. She states it is a little bit more warm on the left side than it is on the right. She is not a diabetic. She denies any trauma to the area. All other review of systems reviewed and negative except as stated. Timing/Duration: week Severity: mild Location: torso (left nipple) Possible Cause: no cause identified Associated Symptoms: denies symptoms Allergies and Home Medications Allergies Coded Allergies: bee venom protein (honey bee) (Verified Allergy, Unknown, 02/09/20) hydrocodone (Unverified Adverse Reaction, Unknown, nausea, 02/09/20) Home Medications Dicyclomine HCl 10 Mg Capsule, 10 MG PO QID PRN for STOMACH UPSET, (Reported) Pantoprazole Sodium 40 Mg Tablet.dr, 40 MG PO DAILY Prescribed by: ESTELA CHOU on 05/26/20 1331 Topiramate 50 Mg Tablet, 50 MG PO DAILY, (Reported) Venlafaxine HCl 75 Mg Cap.er.24h, 75 MG PO DAILY, (Reported) Patient Home Medication List Home Medication List Reviewed: Yes Review of Systems Review of Systems Constitutional: see HPI Respiratory: no symptoms reported Gastrointestinal: no symptoms reported Skin: see HPI, other (drainage of "pus") All Other Systems Reviewed Negative Unless Noted: Yes Past Uujcjiw-Uasteq-Thaecu Hx Patient Social History 2nd Hand Smoke Exposure: No Recent Hopitalizations: No Immunizations Up To Date Tetanus Booster (TDap): Unknown Seasonal Allergies Seasonal Allergies: No Past Medical History Surgeries: No Respiratory: No Cardiac: No Neurological: Yes (CHRONIC DAILY HEADACHES SINCE 2ND GRADE/HIT HER HEAD WHEN FELL OFF SWING) Concussion, Headaches /Migraines Reproductive Disorders: No Genitourinary: No Gastrointestinal: Yes Gastroesophageal Reflux Musculoskeletal: No Endocrine: No HEENT: No Cancer: No Psychosocial: No Integumentary: No Blood Disorders: No Physical Exam Vital Signs Capillary Refill : General Appearance: WD/WN, no apparent distress HEENT: PERRL/EOMI Cardiovascular: regular rate, rhythm Respiratory: no respiratory distress, no accessory muscle use Extremities: normal range of motion 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: alert, normal mood/affect, oriented x 3 Skin: normal color, warm/dry, other (Patient has mild erythema over the left breast circumferentially around the nipple. She has a piercing through the left nipple that shows a little bit of yellow crusted drainage to the lateral aspect; the breast is slightly warmer on the left than it is the right.) Skin Problem Location: other (left nipple) Skin Problem Character: drainage, erythema Departure Impression Primary Impression: Cellulitis of left breast Disposition: 01 HOME, SELF-CARE Condition: Stable Departure-Patient Inst. Decision time for Depature: 17:07 Referrals: [facility]/ (PCP) Primary Care Physician SWATHI TOBIAS (Family) Primary Care Physician Patient Instructions: Cellulitis and Erysipelas (Skin Infections) Add. Discharge Instructions: Keep the area clean dry and covered for a couple of days. Use a little triple antibiotic ointment over the nipple twice a day for 2/3 days. Take the antibiotics as directed for a week. Return to the ER for re-evaluation if you develop worsening redness, fever, drainage or any other emergent concerning symptoms. Scripts Cephalexin (Cephalexin) 500 Mg Tablet 500 MG PO TID for 7 Days, #21 TAB Prov: MADHAVI MITCHELL MD 01/07/21 MADHAVI MITCHELL MD Jan 07, 2021 17:06
[2021-01-07] MEDS ORDERED: CEPH500T PO (17:09)
== END 2021-01-07 17:15 | disposition home or self-care (01) ==
LOC: EDUNIT# 16:41 → ER 16:44
DX: N61.0 Mastitis without abscess (principal); K21.9 Gastro-esophageal reflux disease without esophagitis; Z88.5 Allergy status to narcotic agent; Z87.820 Personal history of traumatic brain injury
CPT/HCPCS: 99282

== ENCOUNTER 2021-05-09 21:20 | Emergency (ER) | payer MEDICAID ==
[~2021-05-09] VITALS: Ht 157.4 cm; Wt 113.4 kg
[~2021-05-09 21:20] MED LIST changes: +CEPH500T PO
[2021-05-09] MEDS ORDERED: LACTATED RINGERS 1,000 ML IV ONE (22:30)
[2021-05-09] MEDS ORDERED: PROMETHAZINE INJ 25 MG/ML (PHENERGAN) AMP IVP ONE (22:30)
[2021-05-09] MEDS ORDERED: KETOROLAC 30 MG/ML VIAL IVP ONE (22:30)
[2021-05-09] MEDS ORDERED: toPIRamate 25 MG (TOPAMAX) TAB PO ONE (22:45)
[2021-05-09] MEDS ORDERED: VENlafaxine XR 75 MG (EFFEXOR XR) CAP PO ONE (22:45)
--- NOTE | 2021-05-09 22:47 | ED Headache ---
General Chief Complaint: Head/Cervical Problems Stated Complaint: MIGRAINE Nursing Triage Note: C/O MIGRAINE SINCE 0730 THIS AM. IN PROCESS OF MOVING AND CANNOT FIND HER MEDICATIONS SHE TAKES FOR CHRONIC MIGRAINES. Nursing Sepsis Screen: No Definite Risk Source: patient Exam Limitations: no limitations History of Present Illness Date Seen by Provider: May 09, 2021 Time Seen by Provider: 22:10 Initial Comments This 26-year-old young lady presents to the emergency room with complaints of migraine headache. She normally takes Topamax and venlafaxine to help prevent migraines but she has misplaced those medications in a move. She has not had them today. She took some Excedrin Migraine at 15: 3 0 but that did not help. She is also tried ibuprofen and caffeine. She has associated nausea and pain behind her eyes. No vision changes or other focal neurologic deficits. She receives her primary care at the [facility]. Allergies and Home Medications Allergies Coded Allergies: bee venom protein (honey bee) (Verified Allergy, Unknown, 02/09/20) hydrocodone (Unverified Adverse Reaction, Unknown, nausea, 02/09/20) Home Medications Cephalexin 500 Mg Tablet, 500 MG PO TID Prescribed by: MADHAVI MITCHELL on 01/07/21 1709 Dicyclomine HCl 10 Mg Capsule, 10 MG PO QID PRN for STOMACH UPSET, (Reported) Pantoprazole Sodium 40 Mg Tablet.dr, 40 MG PO DAILY Prescribed by: ESTELA CHOU on 05/26/20 1331 Topiramate 50 Mg Tablet, 50 MG PO DAILY, (Reported) Venlafaxine HCl 75 Mg Cap.er.24h, 75 MG PO DAILY, (Reported) Patient Home Medication List Home Medication List Reviewed: Yes Review of Systems Review of Systems Constitutional: no symptoms reported Eyes: See HPI Ears, Nose, Mouth, Throat: no symptoms reported Respiratory: no symptoms reported Cardiovascular: no symptoms reported Gastrointestinal: see HPI Genitourinary: no symptoms reported : No Musculoskeletal: no symptoms reported Skin: no symptoms reported Psychiatric/Neurological: See HPI Past Nwqzaae-Ziafqu-Ffocxj Hx Past Med/Social Hx: Reviewed Nursing Past Med/Soc Hx Patient Social History Alcohol Use: Denies Use 2nd Hand Smoke Exposure: No Recent Infectious Disease Expo: No Recent Hopitalizations: No Immunizations Up To Date Tetanus Booster (TDap): Unknown Seasonal Allergies Seasonal Allergies: No Past Medical History Surgeries: No Respiratory: No Cardiac: No Neurological: Yes (CHRONIC DAILY HEADACHES SINCE 2ND GRADE/HIT HER HEAD WHEN FELL OFF SWING) Concussion, Headaches /Migraines : No Last Menstrual Period: May 04, 2021 Reproductive Disorders: No Genitourinary: No Gastrointestinal: Yes Gastroesophageal Reflux Musculoskeletal: No Endocrine: No HEENT: No Cancer: No Psychosocial: No Integumentary: No Blood Disorders: No Physical Exam Vital Signs Vital Signs - First Documented 05/09/21 22:06 Temp 37.2 Pulse 95 Resp 18 B/P (MAP) 136/90 (105) Pulse Ox 98 Capillary Refill : Less Than 3 Seconds Height, Weight, BMI Height: '" Weight: lbs. oz. kg; 45.00 BMI Method: General Appearance: WD/WN, no apparent distress HEENT: PERRL/EOMI, normal ENT inspection Neck: normal inspection Cardiovascular: regular rate, rhythm, no edema, no murmur Respiratory: lungs clear, normal breath sounds, no respiratory distress, no accessory muscle use Extremities: normal inspection, no pedal edema Psychiatric: alert, oriented x 3 Crainal Nerves: normal hearing, normal speech, PERRL Motor/Sensory: no motor deficit, no sensory deficit Skin: normal color, warm/dry Progress/Results/Core Measures Results/Orders My Orders Orders - JOLENE CHATTERJEE MD Promethazine Injection (Phenergan Injec (05/09/21 22:30) Ketorolac Injection (Toradol Injection) (05/09/21 22:30) Ed Iv/Invasive Line Start (05/09/21 22:30) Lactated Ringers (Lr 1000 Ml Iv Solution (05/09/21 22:30) Topiramate Tablet (Topamax Tablet) (05/09/21 22:45) Venlafaxine Xr Capsule (Effexor Xr Capsu (05/09/21 22:45) Medications Given in ED Current Medications Medications Dose Ordered Sig/David Route Start Time Stop Time Status Last Admin Dose Admin Ketorolac Tromethamine 30 mg ONCE ONCE IVP 05/09/21 22:30 05/09/21 22:31 DC 05/09/21 22:41 30 MG Lactated Ringer's 1,000 ml @ 0 mls/hr Q0M ONCE IV 05/09/21 22:30 05/09/21 22:31 DC 05/09/21 22:40 1,000 MLS/HR Promethazine HCl 25 mg ONCE ONCE IVP 05/09/21 22:30 05/09/21 22:31 DC 05/09/21 22:40 25 MG Topiramate 50 mg ONCE ONCE PO 05/09/21 22:45 05/09/21 22:46 DC 05/09/21 22:57 50 MG Venlafaxine HCl 75 mg ONCE ONCE PO 05/09/21 22:45 05/09/21 22:46 DC 05/09/21 22:57 75 MG Vital Signs/I&O 05/09/21 05/09/21 22:06 23:45 Temp 37.2 Pulse 95 87 Resp 18 18 B/P (MAP) 136/90 (105) 156/101 (105) Pulse Ox 98 94 Blood Pressure Mean: 105 Progress Progress Note #1: Time: 22:45 Progress Note Patient is receiving Phenergan and her IV fluids and a dose of Toradol. We are also giving her her usual venlafaxine and Topamax. We will monitor her response and provide additional treatment as needed. Progress Note #2: Progress Note Patient has acceptable improvement in her symptoms with treatment and was discharged home. Departure Impression Primary Impression: Migraine headache Qualified Codes: G43.009 - Migraine without aura, not intractable, without status migrainosus Disposition: 01 HOME, SELF-CARE Condition: Improved Departure-Patient Inst. Decision time for Depature: 23:31 Referrals: [facility] (PCP) Primary Care Physician SWATHI TOBIAS (Family) Primary Care Physician Patient Instructions: Migraines (DC) Add. Discharge Instructions: Try to locate your medications or contact your primary care provider to replace them. Resume your medications tomorrow. For treatment of acute headache you may take ibuprofen up to 600 mg every 6 hours and/or Tylenol (acetaminophen) up to 1000 mg every 6 hours as needed. Drink plenty of clear liquids to stay well-hydrated. Try to sleep in a calm, dark, quiet environment for at least 8 hours tonight. Call with questions or concerns. Return to the ER if you have worsening symptoms. All discharge instructions reviewed with patient and/or family. Voiced understanding. JOLENE CHATTERJEE MD May 09, 2021 22:47
[2021-05-09 23:45] VITALS: BP 156/101
== END 2021-05-09 23:45 | disposition home or self-care (01) ==
LOC: ER 21:20 → EDUNIT# 21:20 → ER 23:45
DX: G43.909 Migraine, unspecified, not intractable, without status migrainosus (principal); K21.9 Gastro-esophageal reflux disease without esophagitis; Z88.5 Allergy status to narcotic agent; Z87.820 Personal history of traumatic brain injury; Z79.899 Other long term (current) drug therapy
CPT/HCPCS: 84703

== ENCOUNTER 2021-05-14 12:24 | Emergency (ER) | payer MEDICAID ==
[~2021-05-14] VITALS: Ht 157 cm; Wt 111.0 kg
--- NOTE | 2021-05-14 13:05 | ED General ---
General Chief Complaint: Dizziness/Syncope Stated Complaint: VOMMITTING, DIZZINESS Nursing Triage Note: ARRIVED VIA AMB TO ROOM 04 WITH COMPLAINTS OF DIZZINESS AND VOMITING X2 STARTING AT 1100 TODAY. Nursing Sepsis Screen: No Definite Risk Source of Information: Patient Exam Limitations: No Limitations History of Present Illness Date Seen by Provider: May 14, 2021 Time Seen by Provider: 12:56 Initial Comments This is a healthy-appearing 26-year-old female presents to the ER with complaints of sudden onset dizziness and vomiting that started around 11:00 today. States she is taking supplies out to her car when she felt dizzy and vomited. States that she does have a history of vertigo however it has never caused her to vomit in the past. Has had a recent sinus infection and left ear pain approximately 3 weeks ago. States that she still has some fullness in her left ear. Denies fever, chills, cough, shortness of breath, chest pain, abdominal pain. Allergies and Home Medications Allergies Coded Allergies: bee venom protein (honey bee) (Verified Allergy, Unknown, 02/09/20) hydrocodone (Unverified Adverse Reaction, Unknown, nausea, 02/09/20) Home Medications Amoxicillin/Potassium Clav 1 Each Tablet, 1 EACH PO BID Prescribed by: SHRUTI TORRES on 05/14/21 1442 Cephalexin 500 Mg Tablet, 500 MG PO TID Prescribed by: MADHAVI MITCHELL on 01/07/21 1709 Dicyclomine HCl 10 Mg Capsule, 10 MG PO QID PRN for STOMACH UPSET, (Reported) Meclizine HCl 25 Mg Tablet, 25 MG PO DAILY PRN for DIZZINESS Prescribed by: SHRUTI TORRES on 05/14/21 1442 Pantoprazole Sodium 40 Mg Tablet.dr, 40 MG PO DAILY Prescribed by: ESTELA CHOU on 05/26/20 1331 Topiramate 50 Mg Tablet, 50 MG PO DAILY, (Reported) Venlafaxine HCl 75 Mg Cap.er.24h, 75 MG PO DAILY, (Reported) Patient Home Medication List Home Medication List Reviewed: Yes Review of Systems Review of Systems Constitutional: see HPI EENTM: see HPI Respiratory: no symptoms reported Cardiovascular: no symptoms reported Gastrointestinal: no symptoms reported Genitourinary: no symptoms reported : No Musculoskeletal: no symptoms reported Skin: no symptoms reported Psychiatric/Neurological: See HPI Hematologic/Lymphatic: No Symptoms Reported Immunological/Allergic: no symptoms reported Past Ccvuido-Yzoqgq-Buqgtb Hx Patient Social History Alcohol Use: Denies Use Smoking Status: Never a Smoker 2nd Hand Smoke Exposure: No Recent Infectious Disease Expo: No Recent Hopitalizations: No Immunizations Up To Date Tetanus Booster (TDap): Unknown Seasonal Allergies Seasonal Allergies: No Past Medical History Surgeries: No Respiratory: No Cardiac: No Neurological: Yes (CHRONIC DAILY HEADACHES SINCE 2ND GRADE/HIT HER HEAD WHEN FE LL OFF SWING) Concussion, Headaches /Migraines Last Menstrual Period: May 04, 2021 Reproductive Disorders: No Genitourinary: No Gastrointestinal: Yes Gastroesophageal Reflux Musculoskeletal: No Endocrine: No HEENT: No Cancer: No Psychosocial: No Integumentary: No Blood Disorders: No Physical Exam Vital Signs Vital Signs - First Documented 05/14/21 12:40 Temp 36.1 Pulse 84 Resp 16 B/P (MAP) 111/80 (90) Pulse Ox 98 O2 Delivery Room Air Capillary Refill : Less Than 3 Seconds Height, Weight, BMI Height: '" Weight: lbs. oz. kg; 45.00 BMI Method: General Appearance: No Apparent Distress, WD/WN Eyes: Bilateral Eye Normal Inspection, Bilateral Eye PERRL, Bilateral Eye EOMI HEENT: PERRL/EOMI; No TMs Normal, No Normal ENT Inspection; Pharynx Normal, TM Abnormal (L) (Retracted, no erythema ), TM Abnormal (R) (red, bulging) Neck: Full Range of Motion, Normal Inspection, Non Tender, Supple Respiratory: Lungs Clear, Normal Breath Sounds, No Accessory Muscle Use Cardiovascular: Regular Rate, Rhythm, No Edema, No Gallop, No Murmur, Normal Peripheral Pulses Gastrointestinal: Normal Bowel Sounds, Non Tender, Soft Back: Normal Inspection Extremity: Normal Capillary Refill, Normal Inspection, Normal Range of Motion 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: Alert, Oriented x3, No Motor/Sensory Deficits, Normal Mood/Affect Skin: Normal Color, Warm/Dry Progress/Results/Core Measures Suspected Sepsis Recent Fever Within 48 Hours: No Infection Criteria Present: None New/Unexplained Altered Menta: No Sepsis Screen: No Definite Risk SIRS Temperature: Pulse: 84 Respiratory Rate: 16 Blood Pressure 111 /80 Mean: 90 Results/Orders Lab Results Laboratory Tests Test 05/14/21 12:28 05/14/21 13:05 Range/Units Lab Scanned Report Referred Lab Report [id number] Urine Color YELLOW Urine Clarity CLEAR Urine pH 6.0 5-9 Urine Specific [place] >=1.030 1.016-1.022 Urine Protein NEGATIVE NEGATIVE Urine Glucose (UA) NEGATIVE NEGATIVE Urine Ketones NEGATIVE NEGATIVE Urine Nitrite NEGATIVE NEGATIVE Urine Bilirubin NEGATIVE NEGATIVE Urine Urobilinogen 0.2 < = 1.0 MG/DL Urine Leukocyte Esterase NEGATIVE NEGATIVE Urine RBC (Auto) 2+ H NEGATIVE Urine RBC 2-5 H /HPF Urine WBC 2-5 /HPF Urine Squamous Epithelial Cells 5-10 /HPF Urine Crystals NONE /LPF Urine Bacteria MODERATE H /HPF Urine Casts NONE /LPF Urine Mucus SMALL H /LPF Urine Culture Indicated YES Micro Results Microbiology 05/14/21 Urine Culture - Final, Complete 3 or more isolates Group B Streptococci My Orders Orders - SHRUTI TORRES APRN Ua Culture If Indicated (05/14/21 12:46) Urine Bedside (05/14/21 12:46) Urine Culture (05/14/21 13:05) Meclizine Tablet (Antivert Tablet) (05/14/21 13:30) Medications Given in ED Vital Signs/I&O 05/14/21 05/14/21 12:40 14:49 Temp 36.1 Pulse 84 73 Resp 16 16 B/P (MAP) 111/80 (90) 102/53 Pulse Ox 98 99 O2 Delivery Room Air Room Air Capillary Refill : Less Than 3 Seconds Blood Pressure Mean: 90 Progress Note : Progress Note Patient examined and in no acute distress. States that it does not feel like the room is spinning, it just feels like when she turns her head a certain way that she is "dizzy". Reports mild nausea at this time. Orders placed for meclizine 25 mg p.o. Rhoda-Hallpike test neg. States that meclizine has improved her symptoms and she is no longer nauseous. Reviewed discharge plan of care and she is agreeable with plan. Departure Impression Primary Impression: Vertigo Additional Impression: Otitis media of right ear Disposition: 01 HOME, SELF-CARE Condition: Improved Departure-Patient Inst. Decision time for Depature: 14:39 Referrals: [facility] (PCP) Primary Care Physician SWATHI TOBIAS (Family) Primary Care Physician Patient Instructions: Vertigo (a Type of Dizziness) (DC) Add. Discharge Instructions: Plan: 1. Follow up with your primary care provider if your symptoms persist. 2. Take antibiotic as directed and complete full course. 3. Use Meclizine daily as needed for vertigo. 4. Make sure you are drinking plenty of fluids to stay hydrated. 5. Return for any new, concerning, or worsening symptoms. All discharge instructions reviewed with patient and/or family. Voiced understanding. Scripts Amoxicillin/Potassium Clav (Augmentin 875-125 Tablet) 1 Each Tablet 1 EACH PO BID for 7 Days, #14 TAB 0 Refills Prov: SHRUTI TORRES APRN 05/14/21 Meclizine HCl (Meclizine HCl) 25 Mg Tablet 25 MG PO DAILY PRN for DIZZINESS, #30 TAB 0 Refills Prov: SHRUTI TORRES [employer] 05/14/21 SHRUTI TORRES APRN May 14, 2021 13:04
[2021-05-14 13:13] LABS: BILIRUBIN,URINE NEGATIVE (NEGATIVE); CLARITY,URINE CLEAR; COLOR,URINE YELLOW; GLUCOSE, URINE (UA) NEGATIVE (NEGATIVE); KETONES,URINE NEGATIVE (NEGATIVE); LEUKOCYTE ESTERASE ,URINE NEGATIVE (NEGATIVE); NITRITE,URINE NEGATIVE (NEGATIVE); PROTEIN,URINE NEGATIVE (NEGATIVE)
[2021-05-14 13:23] LABS: BACTERIA,URINE MODERATE /HPF
[2021-05-14] MEDS ORDERED: MECLIZINE 25 MG (ANTIVERT) TAB PO ONE (13:30)
[2021-05-14] MEDS ORDERED: AMOX-358 PO (14:42)
[2021-05-14] MEDS ORDERED: MECL-149 PO (14:42)
[2021-05-14 14:49] VITALS: BP 102/53
== END 2021-05-14 14:49 | disposition home or self-care (01) ==
LOC: EDUNIT# 12:24 → ER 12:28
DX: R42 Dizziness and giddiness (principal); H66.91 Otitis media, unspecified, right ear; K21.9 Gastro-esophageal reflux disease without esophagitis; Z87.820 Personal history of traumatic brain injury; Z79.899 Other long term (current) drug therapy
CPT/HCPCS: 81000; 84703; 87077; 87088; 99283

== ENCOUNTER 2021-09-09 11:24 | Emergency (ER) | payer MEDICAID ==
[~2021-09-09] VITALS: Ht 157 cm; Wt 117.9 kg
[~2021-09-09 11:24] MED LIST changes: +AMOX-358 PO; +MECL-149 PO
--- NOTE | 2021-09-09 11:40 | ED Headache ---
General Chief Complaint: Head/Cervical Problems Stated Complaint: MIGRAINE Source: patient Exam Limitations: no limitations History of Present Illness Date Seen by Provider: Sep 09, 2021 Time Seen by Provider: 11:38 Initial Comments To ER with reports of migraine x2 days. This is left side of the forehead which is typical for her migraines. She states that she feels like her left eye is going to pop out of her head and this is typical for her migraines. She took some Tylenol today which has not helped. She does not take anything for migraine prophylaxis. No fevers or chills. No other symptoms. Severity/Quality: moderate Location: frontal Prior Headaches/Recent Trauma: occasional headaches Associated Symptoms: denies symptoms Allergies and Home Medications Allergies Coded Allergies: bee venom protein (honey bee) (Verified Allergy, Unknown, 02/09/20) hydrocodone (Unverified Adverse Reaction, Unknown, nausea, 02/09/20) Patient Home Medication List Home Medication List Reviewed: Yes Amoxicillin/Potassium Clav (Augmentin 875-125 Tablet) 1 Each Tablet, 1 EACH PO BID Prescribed by: SHRUTI TORRES on 05/14/21 1442 Cephalexin (Cephalexin) 500 Mg Tablet, 500 MG PO TID Prescribed by: MADHAVI MITCHELL on 01/07/21 1709 Dicyclomine HCl (Dicyclomine HCl) 10 Mg Capsule, 10 MG PO QID PRN for STOMACH UPSET, (Reported) Entered as Reported by: DIMITRIOS PETERS on 05/23/20 1218 Meclizine HCl (Meclizine HCl) 25 Mg Tablet, 25 MG PO DAILY PRN for DIZZINESS Prescribed by: SHRUTI TORRES on 05/14/21 1442 Pantoprazole Sodium (Protonix) 40 Mg Tablet.dr, 40 MG PO DAILY Prescribed by: ESTELA CHOU on 05/26/20 1331 Topiramate (Topiramate) 50 Mg Tablet, 50 MG PO DAILY, (Reported) Entered as Reported by: CAMILLE MCARTHUR on 02/14/20 0114 Venlafaxine HCl (Venlafaxine HCl ER) 75 Mg Cap.er.24h, 75 MG PO DAILY, (Reported) Entered as Reported by: DIMITRIOS PETERS on 05/23/20 1218 Review of Systems Review of Systems Constitutional: see HPI Eyes: No Symptoms Reported Ears, Nose, Mouth, Throat: no symptoms reported Respiratory: no symptoms reported Cardiovascular: no symptoms reported Genitourinary: no symptoms reported Musculoskeletal: no symptoms reported Skin: no symptoms reported Psychiatric/Neurological: No Symptoms Reported Past Wdxswey-Zpygqz-Lckymy Hx Immunizations Up To Date Tetanus Booster (TDap): Unknown Seasonal Allergies Seasonal Allergies: No Past Medical History Surgeries: No Respiratory: No Cardiac: No Neurological: Yes (CHRONIC DAILY HEADACHES SINCE 2ND GRADE/HIT HER HEAD WHEN FELL OFF SWING) Concussion, Headaches /Migraines Reproductive Disorders: No Genitourinary: No Gastrointestinal: Yes Gastroesophageal Reflux Musculoskeletal: No Endocrine: No HEENT: No Cancer: No Psychosocial: No Integumentary: No Blood Disorders: No Physical Exam Vital Signs Vital Signs - First Documented 09/09/21 11:35 Temp 36.3 Pulse 93 Resp 18 B/P (MAP) 137/88 (104) Pulse Ox 97 O2 Delivery Room Air Capillary Refill : Height, Weight, BMI Height: '" Weight: lbs. oz. kg; 45.00 BMI Method: General Appearance: WD/WN, no apparent distress HEENT: PERRL/EOMI, normal ENT inspection, TMs normal Neck: non-tender, full range of motion Respiratory: no respiratory distress, no accessory muscle use Gastrointestinal: normal bowel sounds, non tender Extremities: normal range of motion, non-tender Psychiatric: alert, oriented x 3 Crainal Nerves: normal hearing, normal speech, PERRL Motor/Sensory: no motor deficit, no sensory deficit Skin: normal color, warm/dry Progress/Results/Core Measures Results/Orders My Orders Orders - GRETTA GONZALES APRN Ed Iv/Invasive Line Start (09/09/21 11:35) Ketorolac Injection (Toradol Injection) (09/09/21 11:45) Diphenhydramine Injection (Benadryl Inje (09/09/21 11:45) Prochlorperazine Injection (Compazine In (09/09/21 11:45) Urine Bedside (09/09/21 11:37) Medications Given in ED Current Medications Medications Dose Ordered Sig/David Route Start Time Stop Time Status Last Admin Dose Admin Diphenhydramine HCl 25 mg ONCE ONCE IVP 09/09/21 11:45 09/09/21 11:46 DC 09/09/21 11:47 25 MG Ketorolac Tromethamine 15 mg ONCE ONCE IVP 09/09/21 11:45 09/09/21 11:46 DC 09/09/21 11:48 15 MG Prochlorperazine Edisylate 5 mg ONCE ONCE IV 09/09/21 11:45 09/09/21 11:46 DC 09/09/21 11:50 5 MG Vital Signs/I&O 09/09/21 11:35 Temp 36.3 Pulse 93 Resp 18 B/P (MAP) 137/88 (104) Pulse Ox 97 O2 Delivery Room Air Departure Communication (Admissions) 1228-headache is gone and she would like to go home now. Impression Primary Impression: Migraine headache Disposition: HOME, SELF-CARE Condition: Stable Departure-Patient Inst. Decision time for Depature: 11:40 Referrals: [facility] (PCP) Primary Care Physician SWATHI TOBIAS (Family) Primary Care Physician Patient Instructions: Headache, Adult (DC) GRETTA GONZALES APRN Sep 09, 2021 11:40
[2021-09-09] MEDS ORDERED: diphenhydrAMINE 50 MG/ML INJ (BENADRYL) IVP ONE (11:45)
[2021-09-09] MEDS ORDERED: PROCHLORPERAZINE 10 MG/2ML INJ (COMPAZINE) IV ONE (11:45)
[2021-09-09] MEDS ORDERED: KETOROLAC 30 MG/ML VIAL IVP ONE (11:45)
[2021-09-09 12:28] VITALS: BP 108/70
== END 2021-09-09 12:28 | disposition home or self-care (01) ==
LOC: EDUNIT# 11:24 → ER 11:25
DX: G43.909 Migraine, unspecified, not intractable, without status migrainosus (principal); K21.9 Gastro-esophageal reflux disease without esophagitis; Z87.820 Personal history of traumatic brain injury; Z79.899 Other long term (current) drug therapy
CPT/HCPCS: 84703

== ENCOUNTER 2021-09-19 04:47 | Emergency (ER) | payer MEDICAID ==
[~2021-09-19] VITALS: Ht 155 cm; Wt 120.0 kg
[2021-09-19 04:56] VITALS: BP 128/81
--- NOTE | 2021-09-19 05:09 | ED GU-Female ---
General Stated Complaint: POSS UTI,5 WEEKS PREG Source: patient Exam Limitations: no limitations History of Present Illness Date Seen by Provider: Sep 19, 2021 Time Seen by Provider: 04:50 Initial Comments Patient to the ER by private conveyance from home with chief complaints been having some nausea keeping her up tonight. General discomfort in her belly but no severe pain. She thinks maybe she has a UTI. She is 5 weeks 3 days with an LMP of August 12, 2021. She is a G2, P1 with a 5-year-old daughter. No sick contacts. No fevers or chills. No vomiting diarrhea or dysuria. Patient follows with Dr. Sanchez for OB and Swathi Arenas for primary care. She did have some Zofran which she took with no improvement in symptoms earlier today. She is not taking doxylamine or pyridoxine. Allergies and Home Medications Allergies Coded Allergies: bee venom protein (honey bee) (Verified Allergy, Unknown, 02/09/20) hydrocodone (Unverified Adverse Reaction, Unknown, nausea, 02/09/20) Patient Home Medication List Home Medication List Reviewed: Yes Amoxicillin/Potassium Clav (Augmentin 875-125 Tablet) 1 Each Tablet, 1 EACH PO BID Prescribed by: SHRUTI TORRES on 05/14/21 1442 Cephalexin (Cephalexin) 500 Mg Tablet, 500 MG PO TID Prescribed by: MADHAVI MITCHELL on 01/07/21 1709 Dicyclomine HCl (Dicyclomine HCl) 10 Mg Capsule, 10 MG PO QID PRN for STOMACH UPSET, (Reported) Entered as Reported by: DIMITRIOS PETERS on 05/23/20 1218 Doxylamine Succinate/Vit B6 (Doxylamine-Pyridoxine 10-10 mg) 1 Each Tablet., 1 EACH PO Q6H PRN for NAUSEA-1ST LINE Prescribed by: SULY ALCANTARA on 09/19/21 0518 Meclizine HCl (Meclizine HCl) 25 Mg Tablet, 25 MG PO DAILY PRN for DIZZINESS Prescribed by: SHRUTI TORRES on 05/14/21 1442 Pantoprazole Sodium (Protonix) 40 Mg Tablet.dr, 40 MG PO DAILY Prescribed by: ESTELA CHOU on 05/26/20 1331 Topiramate (Topiramate) 50 Mg Tablet, 50 MG PO DAILY, (Reported) Entered as Reported by: CAMILLE MCARTHUR on 02/14/20 0114 Venlafaxine HCl (Venlafaxine HCl ER) 75 Mg Cap.er.24h, 75 MG PO DAILY, (R eported) Entered as Reported by: DIMITRIOS PETERS on 05/23/20 1218 Review of Systems Review of Systems Constitutional: No chills, No diaphoresis, No fever; malaise EENTM: No ear discharge, No hearing loss Respiratory: No cough, No short of breath Cardiovascular: No chest pain, No edema Gastrointestinal: No abdominal pain, No constipation, No diarrhea; nausea; No vomiting Genitourinary: denies burning, denies discharge All Other Systemes Reviewed Negative Unless Noted: Yes Past Gwgixdd-Jfoujn-Zzcmay Hx Patient Social History Tobacco Use?: No Use of E-Cig and/or Vaping dev: No Substance use?: No Alcohol Use?: No Immunizations Up To Date Tetanus Booster (TDap): Unknown Seasonal Allergies Seasonal Allergies: No Past Medical History Surgery/Hospitalization HX: Hx of Migraines Surgeries: No Respiratory: No Cardiac: No Neurological: Yes (CHRONIC DAILY HEADACHES SINCE 2ND GRADE/HIT HER HEAD WHEN FELL OFF SWING) Concussion, Headaches /Migraines Reproductive Disorders: No Genitourinary: No Gastrointestinal: Yes Gastroesophageal Reflux Musculoskeletal: No Endocrine: No HEENT: No Cancer: No Psychosocial: No Integumentary: No Blood Disorders: No Physical Exam Vital Signs Vital Signs - First Documented 09/19/21 04:56 Temp 36.2 Pulse 85 Resp 18 B/P (MAP) 128/81 (97) Pulse Ox 98 O2 Delivery Room Air Capillary Refill : Height, Weight, BMI Height: '" Weight: lbs. oz. kg; 47.00 BMI Method: General Appearance: no apparent distress, obese HEENT: PERRL/EOMI, pharynx normal Neck: full range of motion, normal inspection Cardiovascular: normal peripheral pulses, regular rate, rhythm Respiratory: lungs clear, normal breath sounds, no respiratory distress, no accessory muscle use Gastrointestinal: normal bowel sounds, non tender, soft Extremities: non-tender, normal inspection, normal capillary refill 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: alert, normal mood/affect, oriented x 3 Skin: normal color, warm/dry Progress/Results/Core Measures Suspected Sepsis SIRS Temperature: Pulse: Respiratory Rate: Blood Pressure / Mean: Results/Orders Lab Results Laboratory Tests Test 09/19/21 04:58 Range/Units Urine Color YELLOW Urine Clarity CLEAR Urine pH 6.0 5-9 Urine Specific [place] >=1.030 1.016-1.022 Urine Protein NEGATIVE NEGATIVE Urine Glucose (UA) NEGATIVE NEGATIVE Urine Ketones NEGATIVE NEGATIVE Urine Nitrite NEGATIVE NEGATIVE Urine Bilirubin NEGATIVE NEGATIVE Urine Urobilinogen 0.2 < = 1.0 MG/DL Urine Leukocyte Esterase NEGATIVE NEGATIVE Urine RBC (Auto) TRACE-I H NEGATIVE Urine RBC NONE /HPF Urine WBC NONE /HPF Urine Squamous Epithelial Cells 0-2 /HPF Urine Crystals NONE /LPF Urine Bacteria NEGATIVE /HPF Urine Casts NONE /LPF Urine Mucus NEGATIVE /LPF Urine Culture Indicated NO My Orders Orders - SULY ALCANTARA Ua Culture If Indicated (09/19/21 04:51) Urine Bedside (09/19/21 04:51) Pyridoxine Tablet (Vitamin B-6 Tablet) (09/19/21 05:15) Diphenhydramine Tablet (Benadryl Tablet) (09/19/21 05:15) Medications Given in ED Vital Signs/I&O Capillary Refill : Progress Note : Time: 05:11 Progress Note Bedside is positive. Will obtain a urinalysis. Doxylamine and Benadryl. We recommended doxylamine and Unisom. The patient states Dr. Mulligan has prescribed her something yesterday for first trimester nausea but she has not picked it up. Her symptoms seem consistent with first trimester nausea of more so than UTI. Departure Impression Primary Impression: Nausea and vomiting during prior to 22 weeks gestation Disposition: 01 HOME, SELF-CARE Condition: Stable Departure-Patient Inst. Decision time for Depature: 05:17 Referrals: [facility] (PCP) Primary Care Physician SWATHI ARENAS (Family) Primary Care Physician HERB SANCHEZ MD Patient Instructions: Nausea and Vomiting of Add. 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 Sanchez and use it for nausea as necessary. Drink plenty of fluids to stay hydrated. Scripts Doxylamine Succinate/Vit B6 (Doxylamine-Pyridoxine 10-10 mg) 1 Each Tablet.dr 1 EACH PO Q6H PRN for NAUSEA-1ST LINE, #20 TAB 0 Refills Prov: SULY ALCANTARA 09/19/21 Copy Copies To 1: HERB SANCHEZ MD, TITUS J Sep 19, 2021 05:09
[2021-09-19 05:10] LABS: BILIRUBIN,URINE NEGATIVE (NEGATIVE); CLARITY,URINE CLEAR; COLOR,URINE YELLOW; GLUCOSE, URINE (UA) NEGATIVE (NEGATIVE); KETONES,URINE NEGATIVE (NEGATIVE); LEUKOCYTE ESTERASE ,URINE NEGATIVE (NEGATIVE); NITRITE,URINE NEGATIVE (NEGATIVE); PROTEIN,URINE NEGATIVE (NEGATIVE)
[2021-09-19 05:14] LABS: BACTERIA,URINE NEGATIVE /HPF; SQUAMOUS EPITHELIAL CELL,UR 0-2 /HPF
[2021-09-19] MEDS ORDERED: diphenhydrAMINE 25 MG TAB (BENADRYL) PO ONE (05:15)
[2021-09-19] MEDS ORDERED: PYRIDOXINE (VITAMIN B-6) 50 MG TABLET PO ONE (05:15)
[2021-09-19] MEDS ORDERED: DOXY1TAB8 PO (05:18)
== END 2021-09-19 05:28 | disposition home or self-care (01) ==
LOC: EDUNIT# 04:47 → ER 04:52
DX: O21.0 Mild hyperemesis gravidarum (principal); K21.9 Gastro-esophageal reflux disease without esophagitis; E66.9 Obesity, unspecified; Z87.820 Personal history of traumatic brain injury; Z79.899 Other long term (current) drug therapy; Z3A.01 Less than 8 weeks gestation of pregnancy
CPT/HCPCS: 81000; 84703; 99283

== ENCOUNTER → 2021-10-09 | Outpatient (CLI) | payer MEDICAID ==
[~2021-10-09] MED LIST changes: +DOXY1TAB8 PO
--- NOTE | 2021-10-09 13:01 | Diagnostic Imaging Report ---
PROCEDURE: US OB SINGLE FETUS <14 WKS. TECHNIQUE: Multiple real-time grayscale images were obtained over the gravid uterus in various projections. INDICATION: size and dates There are no prior studies for comparison. The uterus is enlarged measuring 12.5 x 5.1 x 8.0 cm. There is no focal mass involving the uterus to suggest a fibroid. There is a gestational sac within the uterus containing a single live fetus. heart motion was noted and a rate of 169 bpm is recorded. [place] rump suggest estimate gestational age is 8 weeks 3 days +/- 1 week. There were no obvious abnormalities identified. The amount of fluid volume is within normal limits. The yolk sac was noted. At this time its not certain where the placenta well develop. The right ovary was identified and was unremarkable. Left ovary could not be clearly visualized. There is no pelvic mass or free fluid collection noted. IMPRESSION: 1. There is a single live intrauterine approximately 8 weeks 3 days gestation +/- 1 week. EDC is 05/18/2022. 2. There were no obvious abnormalities were identified. If a more sensitive evaluation of the anatomy is desired, then a follow-up ultrasound exam in 10-12 weeks should be obtained. 3. The left ovary could not be identified. Dictated by: Dictated on workstation # [id number]
== END ==
LOC: RAD 10:00
PROVIDERS: ATTEND Family Medicine
DX: Z34.91 Encounter for supervision of normal pregnancy, unspecified, first trimester (principal); Z3A.08 8 weeks gestation of pregnancy
CPT/HCPCS: 76801

== ENCOUNTER 2021-11-01 09:41 | Emergency (ER) | payer MEDICAID ==
[~2021-11-01] VITALS: Ht 154.9 cm; Wt 117.9 kg
--- NOTE | 2021-11-01 10:09 | ED Headache ---
General Chief Complaint: Head/Cervical Problems Stated Complaint: MIGRAINE, 12 WKS PREG Nursing Triage Note: PT AMB TO RM 4 WITH COMPLAINT OF MIGRAINE. STATES SHE HAS HAD A MIGRAINE FOR 1 WEEK. STATES SHE IS 12 WEEKS . STATES SHE HAS HX OF MIGRAINES. Source: patient Exam Limitations: no limitations History of Present Illness Date Seen by Provider: Nov 01, 2021 Time Seen by Provider: 09:43 Initial Comments 26-year-old female with past medical history of migraines that is roughly 11 weeks by ultrasound coming in due to a migraine. Feels very similar to her typical headaches, is on the right side of her head, started last night. Tried Tylenol this morning which did not help. Severe, constant, throbbing in the right side of her head with nothing seems to make better or worse. Has associated nausea but no vomiting. As far as her goes, everything has been uncomplicated thus far. She is otherwise denying any other acute complaints including chest pain, shortness of breath, focal weakness or numbness, vision changes, abdominal pain, vaginal bleeding, or any other concerns Allergies and Home Medications Allergies Coded Allergies: bee venom protein (honey bee) (Verified Allergy, Unknown, 02/09/20) hydrocodone (Unverified Adverse Reaction, Unknown, nausea, 02/09/20) Patient Home Medication List Home Medication List Reviewed: Yes Amoxicillin/Potassium Clav (Augmentin 875-125 Tablet) 1 Each Tablet, 1 EACH PO BID Prescribed by: SHRUTI TORRES on 05/14/21 1442 Cephalexin (Cephalexin) 500 Mg Tablet, 500 MG PO TID Prescribed by: MADHAVI MITCHELL on 01/07/21 1709 Dicyclomine HCl (Dicyclomine HCl) 10 Mg Capsule, 10 MG PO QID PRN for STOMACH UPSET, (Reported) Entered as Reported by: DIMITRIOS PETERS on 05/23/20 1218 Doxylamine Succinate/Vit B6 (Doxylamine-Pyridoxine 10-10 mg) 1 Each Tablet., 1 EACH PO Q6H PRN for NAUSEA-1ST LINE Prescribed by: SULY ALCANTARA on 09/19/21 0518 Meclizine HCl (Meclizine HCl) 25 Mg Tablet, 25 MG PO DAILY PRN for DIZZINESS Prescribed by: SHRUTI TORRES on 05/14/21 1442 Pantoprazole Sodium (Protonix) 40 Mg Tablet.dr, 40 MG PO DAILY Prescribed by: ESTELA CHOU on 05/26/20 1331 Topiramate (Topiramate) 50 Mg Tablet, 50 MG PO DAILY, (Reported) Entered as Reported by: CAMILLE MCARTHUR on 02/14/20 0114 Venlafaxine HCl (Venlafaxine HCl ER) 75 Mg Cap.er.24h, 75 MG PO DAILY, (Reported) Entered as Reported by: DIMITRIOS PETERS on 05/23/20 1218 Review of Systems Review of Systems Constitutional: No chills Eyes: No Symptoms Reported Ears, Nose, Mouth, Throat: no symptoms reported Respiratory: no symptoms reported Cardiovascular: no symptoms reported Gastrointestinal: no symptoms reported Genitourinary: no symptoms reported Musculoskeletal: no symptoms reported Skin: no symptoms reported Psychiatric/Neurological: Headache All Other Systems Reviewed Negative Unless Noted: Yes Past Bgaeyut-Fferbb-Fjekip Hx Patient Social History Tobacco Use?: No Use of E-Cig and/or Vaping dev: No Substance use?: No Alcohol Use?: No Pt feels they are or have been: No Immunizations Up To Date Tetanus Booster (TDap): Unknown Seasonal Allergies Seasonal Allergies: No Past Medical History Surgery/Hospitalization HX: Hx of Migraines Surgeries: No Respiratory: No Cardiac: No Neurological: Yes (CHRONIC DAILY HEADACHES SINCE 2ND GRADE/HIT HER HEAD WHEN FELL OFF SWING) Concussion, Headaches /Migraines Last Menstrual Period: Aug 13, 2021 Reproductive Disorders: No Genitourinary: No Gastrointestinal: Yes Gastroesophageal Reflux Musculoskeletal: No Endocrine: No HEENT: No Cancer: No Psychosocial: No Integumentary: No Blood Disorders: No Physical Exam Vital Signs Vital Signs - First Documented 11/01/21 09:52 Temp 36.2 Pulse 86 Resp 16 B/P (MAP) 117/84 (95) Pulse Ox 96 O2 Delivery Room Air Capillary Refill : Less Than 3 Seconds Height, Weight, BMI Height: '" Weight: lbs. oz. kg; 49.00 BMI Method: General Appearance: WD/WN, no apparent distress HEENT: PERRL/EOMI, normal ENT inspection, pharynx normal Neck: non-tender, full range of motion, supple, normal inspection Cardiovascular: regular rate, rhythm, no edema, no murmur Respiratory: chest non-tender, lungs clear, normal breath sounds, no respiratory distress, no accessory muscle use Gastrointestinal: normal bowel sounds, non tender, soft; No distended, No guarding, No rebound Back: normal inspection, no CVA tenderness, no vertebral tenderness Extremities: normal range of motion, non-tender, normal inspection, no pedal edema, no calf tenderness, normal capillary refill Psychiatric: alert, oriented x 3 Crainal Nerves: normal hearing, normal speech, PERRL Coordination/Gait: normal finger to nose, normal gait Motor/Sensory: no motor deficit, no sensory deficit Skin: normal color, warm/dry Lymphatic: no adenopathy Progress/Results/Core Measures Results/Orders My Orders Orders - SVITLANA CALVILLO MD Metoclopramide Injection (Reglan Injecti (11/01/21 10:15) Diphenhydramine Injection (Benadryl Inje (11/01/21 10:15) Lactated Ringers (Lr 1000 Ml Iv Solution (11/01/21 10:15) Dexamethasone Injection (Decadron Injec (11/01/21 10:15) Medications Given in ED Current Medications Medications Dose Ordered Sig/David Route Start Time Stop Time Status Last Admin Dose Admin Dexamethasone Sodium Phosphate 4 mg ONCE ONCE IV 11/01/21 10:15 11/01/21 10:16 DC 11/01/21 10:30 4 MG Diphenhydramine HCl 25 mg ONCE ONCE IV 11/01/21 10:15 11/01/21 10:16 DC 11/01/21 10:30 25 MG Metoclopramide HCl 10 mg ONCE ONCE IVP 11/01/21 10:15 11/01/21 10:16 DC 11/01/21 10:30 10 MG Vital Signs/I&O 11/01/21 09:52 Temp 36.2 Pulse 86 Resp 16 B/P (MAP) 117/84 (95) Pulse Ox 96 O2 Delivery Room Air Blood Pressure Mean: 95 Progress Progress Note : Progress Note 26-year-old female with above history coming in to what she states is a typical migraine. ABCs were intact and vitals were stable on presentation. She has no red flags for this headache. An IV was placed and she was given Reglan, Benadryl, IV fluids, and Decadron for her headache. On reassessment the headache was completely gone. I believe she is stable for discharge with outpatient follow-up. She was sent home with strict return precautions. Of note, she has an OB, has not had any complications, and has no symptoms related to her as of right now. Departure Impression Primary Impression: Headache Qualified Codes: R51.9 - Headache, unspecified Additional Impression: Qualified Codes: Z34.90 - Encounter for supervision of normal , unspecified, unspecified trimester Disposition: 01 HOME, SELF-CARE Condition: Stable Departure-Patient Inst. Decision time for Depature: 11:17 Referrals: [facility] [place] Primary Care Physician SWATHI TOBIAS (Family) Primary Care Physician Patient Instructions: Headache, Adult ED Add. Discharge Instructions: You were seen in the emergency department for your typical migraine. We did give you medicines to help with this. You have any other concerns, fever, neck stiffness, or anything else that worries you then please call your doctor or come back to the ER. Work/School Note: Work Release Form Date Seen in the Emergency Department: Nov 01, 2021 Return to Work: Nov 02, 2021 Restrictions: No Restrictions SVITLANA CALVILLO MD Nov 01, 2021 10:09
[2021-11-01] MEDS ORDERED: LACTATED RINGERS 1,000 ML IV SCH (10:15)
[2021-11-01] MEDS ORDERED: diphenhydrAMINE 50 MG/ML INJ (BENADRYL) IV ONE (10:15)
[2021-11-01] MEDS ORDERED: METOCLOPRAMIDE INJ 10 MG/2 ML (REGLAN) IVP ONE (10:15)
[2021-11-01 11:37] VITALS: BP 123/78
== END 2021-11-01 11:37 | disposition home or self-care (01) ==
LOC: EDUNIT# 09:41 → ER 09:43
DX: O26.891 Other specified pregnancy related conditions, first trimester (principal); R51.9 Headache, unspecified; K21.9 Gastro-esophageal reflux disease without esophagitis; Z3A.11 11 weeks gestation of pregnancy; Z87.820 Personal history of traumatic brain injury; Z79.899 Other long term (current) drug therapy

== ENCOUNTER 2022-03-29 11:33 | Outpatient (CLI) | payer MEDICAID ==
[~2022-03-29] VITALS: Ht 154.9 cm; Wt 116.0 kg
[2022-03-29 12:12] LABS: CLARITY,URINE SL CLOUDY; COLOR,URINE AMBER; GLUCOSE, URINE (UA) NEGATIVE (NEGATIVE); KETONES,URINE TRACE (NEGATIVE); LEUKOCYTE ESTERASE ,URINE TRACE (NEGATIVE); NITRITE,URINE POSITIVE (NEGATIVE); PROTEIN,URINE 1+ (NEGATIVE)
[2022-03-29 12:15] VITALS: BP 110/62
[2022-03-29 12:28] LABS: BACTERIA,URINE LARGE /HPF; CALCIUM OXALATE CRYSTALS,UR MODERATE /LPF
[2022-03-29] MEDS ORDERED: cefTRIAXone 1 GM PRE-MIX 50 ML IV ONE (13:30)
[2022-03-29] MEDS ORDERED: NS IV 1000 ML 1,000 ML IV SCH (13:30)
[2022-03-30 08:18] LABS: BILIRUBIN,URINE 2+ (NEGATIVE)
--- NOTE | 2022-04-01 08:20 | Physician Query-Final Dx ---
SIA04/01/22 0820: Clinic Account Progress/Dx Physician Query: Please give diagnosis Please include # weeks gestation Date of Service Mar 29, 2022 at 11:33 SHERRIE RODRIGUEZ DO 04/02/22 0650: Clinic Account Progress/Dx DIAGNOSIS: Diagnosis 31 week GA pelvic pain SIA,DecApril 01, 2022 08:20 SHERRIE RODRIGUEZ DO April 02, 2022 06:50
== END 2022-03-29 16:34 ==
LOC: WSo 11:33 → LDRP 11:33 → WSo 16:34
PROVIDERS: ATTEND Family Medicine
DX: O26.893 Other specified pregnancy related conditions, third trimester (principal); R10.2 Pelvic and perineal pain; Z3A.31 31 weeks gestation of pregnancy
CPT/HCPCS: 81000; 87088; 96361; 96374; G0463; 99213

== ENCOUNTER 2022-04-08 11:28 | Outpatient (CLI) | payer MEDICAID ==
[~2022-04-08] VITALS: Ht 155 cm; Wt 117.1 kg
[2022-04-08 11:50] VITALS: BP 107/68
[2022-04-08 13:05] LABS: CLARITY,URINE CLEAR; COLOR,URINE YELLOW; GLUCOSE, URINE (UA) NEGATIVE (NEGATIVE); KETONES,URINE TRACE (NEGATIVE); LEUKOCYTE ESTERASE ,URINE NEGATIVE (NEGATIVE); NITRITE,URINE POSITIVE (NEGATIVE); PROTEIN,URINE 1+ (NEGATIVE)
[2022-04-08 13:20] LABS: BACTERIA,URINE LARGE /HPF; BILIRUBIN,URINE 1+ (NEGATIVE); CALCIUM OXALATE CRYSTALS,UR FEW /LPF
[2022-04-08] MEDS ORDERED: FERR325T18 PO (13:47)
[2022-04-08] MEDS ORDERED: PREN1TAB79 PO (13:47)
[2022-04-08] MEDS ORDERED: CEPH500T PO (13:49)
[2022-04-08 14:05] VITALS: BP 107/68
--- NOTE | 2022-04-09 07:57 | Physician Query-Final Dx ---
Clinic Account Progress/Dx Physician Query: Please give diagnosis Please include # weeks gestation Date of Service April 08, 2022 at 11:28 ,DecApril 09, 2022 07:57
== END 2022-04-08 14:05 | disposition home or self-care (01) ==
LOC: WSo 11:28 → LDRP 11:31 → WSo 14:05
PROVIDERS: ATTEND Family Medicine
DX: O62.9 Abnormality of forces of labor, unspecified (principal); Z3A.00 Weeks of gestation of pregnancy not specified
CPT/HCPCS: 81000; 87088; G0463; 99214

== ENCOUNTER 2022-04-18 20:07 | Outpatient (CLI) | payer MEDICAID ==
[~2022-04-18] VITALS: Ht 154.9 cm; Wt 118.1 kg
[~2022-04-18 20:07] MED LIST changes: +FERR325T18 PO; +PREN1TAB79 PO
[2022-04-18 20:48] VITALS: BP 125/75
[2022-04-18 20:59] LABS: BILIRUBIN,URINE NEGATIVE (NEGATIVE); CLARITY,URINE CLEAR; COLOR,URINE YELLOW; GLUCOSE, URINE (UA) NEGATIVE (NEGATIVE); KETONES,URINE NEGATIVE (NEGATIVE); LEUKOCYTE ESTERASE ,URINE NEGATIVE (NEGATIVE); NITRITE,URINE NEGATIVE (NEGATIVE); PROTEIN,URINE NEGATIVE (NEGATIVE)
[2022-04-18 21:10] LABS: BACTERIA,URINE MODERATE /HPF
[2022-04-18 21:20] VITALS: BP 128/81
[2022-04-18 21:49] VITALS: BP 130/77
[2022-04-18 21:59] LABS: BILIRUBIN,URINE NEGATIVE (NEGATIVE); CLARITY,URINE CLEAR; COLOR,URINE YELLOW; GLUCOSE, URINE (UA) NEGATIVE (NEGATIVE); KETONES,URINE NEGATIVE (NEGATIVE); LEUKOCYTE ESTERASE ,URINE NEGATIVE (NEGATIVE); NITRITE,URINE NEGATIVE (NEGATIVE); PROTEIN,URINE NEGATIVE (NEGATIVE)
[2022-04-18 22:15] LABS: BACTERIA,URINE FEW /HPF
[2022-04-18 22:20] VITALS: BP 128/76
[2022-04-18 22:55] VITALS: BP 123/74
--- NOTE | 2022-04-19 08:55 | Physician Query-Final Dx ---
SIA,04/19/22 0855: Clinic Account Progress/Dx Physician Query: Please give diagnosis Please include # weeks gestation Date of Service April 18, 2022 at 20:07 HERB SANCHEZ MD 04/21/22 2237: Clinic Account Progress/Dx DIAGNOSIS: Diagnosis 1. IUP in third trimester 2. Uterine irritability, without labor ,DecApril 19, 2022 08:55 HERB SANCHEZ MD April 21, 2022 22:37
== END 2022-04-18 23:08 | disposition home or self-care (01) ==
LOC: WSo 20:07 → LDRP 20:12 → WSo 23:08
PROVIDERS: ATTEND Family Medicine
DX: O62.8 Other abnormalities of forces of labor (principal); Z3A.00 Weeks of gestation of pregnancy not specified
CPT/HCPCS: 81000; 87088; G0463; 99214

== ENCOUNTER 2022-05-03 19:01 | Observation (INO) | payer MEDICAID ==
[~2022-05-03] VITALS: Ht 154.9 cm; Wt 118.0 kg
[2022-05-03 20:00] VITALS: BP 138/81
[2022-05-03] MEDS ORDERED: LACTATED RINGERS 1,000 ML IV SCH (20:45)
[2022-05-03] MEDS ORDERED: D5 LR IV SOLUTION 1,000 ML IV ONE (21:44)
[2022-05-04] MEDS ORDERED: D5 LR IV SOLUTION 1,000 ML IV ONE (00:45)
[2022-05-04 08:00] VITALS: BP 121/78
[2022-05-04 08:30] VITALS: BP 129/64
[2022-05-04 09:00] VITALS: BP 121/68
[2022-05-04 09:30] VITALS: BP 129/64
[2022-05-04 09:55] VITALS: BP 133/72
--- NOTE | 2022-05-04 10:05 | Short Stay Summary ---
HPI History of Present Illness: 27 yo @ 37 weeks that presents with decreased movement and contractions. Patient denies LOF or vaginal bleeding. States that she really has not felt baby move that much in the last 24 hrs. She has been drinking at least 60 oz of water in the last 48 hrs. She has been eating normally. Denies any STEEN, swelling or blurry vision. She has been being monitored because of her elevated fluid level the last few appts. Source: patient, spouse Exam Limitations: no limitations Date seen by provider: May 04, 2022 Time Seen by Provider: 10:05 Attending Physician Linette Petersen MD PCP Admitting Physician: Attending Physician: Sapphire Patel DO Consult Date of Admission Home Medications Home Medications Reviewed patient Home Medication Reconciliation performed by pharmacy medication reconciliations instrument and controls technician and/or nursing. Patients Allergies have been reviewed. Allergies Coded Allergies: bee venom protein (honey bee) (Verified Allergy, Unknown, 02/09/20) CYV-Cygtut-Jafhfb Hx Patient Social History Living Status: Lives with spouse independently 2nd Hand Smoke Exposure: No Recent Hopitalizations: No Immunizations Up To Date Tetanus Booster (TDap): Unknown Review of Systems ([facility]) Constitutional: no symptoms reported EENTM: no symptoms reported Respiratory: no symptoms reported Cardiovascular: no symptoms reported Gastrointestinal: abdominal pain Genitourinary: frequency : Yes Musculoskeletal: back pain Skin: no symptoms reported Psychiatric/Neurological: No Symptoms Reported Physical Exam-([facility]) Physical Exam Vital Signs VS - Last 72 Hours, by Label 05/03/22 05/03/22 05/03/22 05/04/22 20:00 22:00 23:00 00:00 Temp 36.8 36.9 Pulse 90 97 108 99 Resp 18 18 18 18 B/P (MAP) 138/81 (100) Pulse Ox 98 97 98 99 O2 Delivery Room Air Room Air Room Air Room Air 05/04/22 05/04/22 05/04/22 05/04/22 01:00 02:00 03:00 04:00 Pulse 106 103 Resp 18 18 18 18 Pulse Ox 98 97 O2 Delivery Room Air Room Air Room Air Room Air 05/04/22 05/04/22 05/04/22 05/04/22 05:00 06:00 07:00 08:00 Temp 36.7 Pulse 86 92 Resp 18 18 18 16 B/P (MAP) 121/78 (92) Pulse Ox 98 98 O2 Delivery Room Air Room Air Room Air Room Air 05/04/22 05/04/22 05/04/22 05/04/22 08:30 09:00 09:30 09:55 Pulse 90 99 90 88 Resp 16 16 16 16 B/P (MAP) 129/64 (85) 121/68 (85) 129/64 (85) 133/72 (92) Pulse Ox 99 98 98 99 O2 Delivery Room Air Room Air Room Air Room Air Capillary Refill : General Appearance: WD/WN, no apparent distress HEENT: PERRL/EOMI Neck: non-tender, full range of motion Respiratory: chest non-tender, lungs clear, normal breath sounds, no respirato ry distress, no accessory muscle use Cardiovascular: normal peripheral pulses, regular rate, rhythm, no edema, no murmur Gastrointestinal: soft, other (gravid uterus, non tender) Back: no CVA tenderness Extremities: normal capillary refill, pedal edema (trace swelling) 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: 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 nml as tested, no motor/sensory deficits, alert, normal mood/affect, oriented x 3 Skin: normal color, warm/dry Lymphatic: no adenopathy Short Stay Diagnosis Discharge Diagnosis-Short Stay Admission Diagnosis See problem list Final Discharge Diagnosis See problem list Conclusion Plan See above Assessment/Plan Assessment/Plan Admission Status: Observation (1) Third trimester (2) 37 weeks gestation of (3) Decreased movement Status: Acute Assessment & Plan: - Reactive NST, set patient up for BPP and NST tomorrow to monitor PEDRO, push fluids and take it easy the rest of the day, return precaut ions discussed Qualifiers: YISSEL HARGROVE MD May 04, 2022 10:05
== END 2022-05-04 11:20 | disposition home or self-care (01) ==
LOC: WSo 19:01 → LDRP 19:01 → WSo 05-04 09:17 → LDRP 05-04 09:18
PROVIDERS: ADMIT Family Medicine; ATTEND Family Medicine
DX: O36.8130 Decreased fetal movements, third trimester, not applicable or unspecified (principal); Z3A.37 37 weeks gestation of pregnancy
CPT/HCPCS: 96360; 96361

== ENCOUNTER 2022-05-06 22:25 | Outpatient (CLI) | payer MEDICAID ==
[~2022-05-06] VITALS: Ht 154.9 cm; Wt 119.2 kg
[2022-05-06 22:44] VITALS: BP 133/67
[2022-05-06 23:05] VITALS: BP 133/67
[2022-05-06 23:07] VITALS: BP 133/67
[2022-05-06 23:39] LABS: BACTERIA,URINE LARGE /HPF; CLARITY,URINE CLEAR; COLOR,URINE YELLOW; GLUCOSE, URINE (UA) NEGATIVE (NEGATIVE); KETONES,URINE 2+ (NEGATIVE); LEUKOCYTE ESTERASE ,URINE NEGATIVE (NEGATIVE); NITRITE,URINE POSITIVE (NEGATIVE); PROTEIN,URINE 2+ (NEGATIVE)
[2022-05-06 23:40] VITALS: BP 123/65
[2022-05-06 23:40] LABS: BILIRUBIN,URINE 2+ (NEGATIVE)
[2022-05-06 23:57] VITALS: BP 133/67
== END 2022-05-06 23:55 | disposition home or self-care (01) ==
LOC: WSo 22:25 → LDRP 22:40 → WSo 23:55
PROVIDERS: ATTEND Family Medicine
DX: O62.9 Abnormality of forces of labor, unspecified (principal); Z3A.00 Weeks of gestation of pregnancy not specified
CPT/HCPCS: 81000; 87088; 99213

== ENCOUNTER 2022-05-07 19:00 | Inpatient (IN) | payer MEDICAID ==
[~2022-05-07] VITALS: Ht 154.9 cm; Wt 119.4 kg
[2022-05-07] VITALS (7 sets, daily range): BP systolic 115–131; BP diastolic 59–83
[2022-05-07] MEDS ORDERED: MINERAL OIL 30 ML TOP PRN (20:00)
[2022-05-07] MEDS ORDERED: D5 LR IV SOLUTION 1,000 ML IV ONE (21:01)
[2022-05-07] MEDS: LACTATED RINGERS 1,000 ML IV SCH (21:12)
[2022-05-07] MEDS: D5 LR IV SOLUTION 1,000 ML IV SCH (21:12)
[2022-05-07] MEDS ORDERED: AMPICILLIN 2,000 MG/14.8 ML (IV USE) ONE (21:20)
[2022-05-07] MEDS ORDERED: NS (IVPB) 50 ML ONE (21:20)
[2022-05-07 21:37] LABS: BASOPHILS % (AUTO) 0 % (0-10); EOSINOPHILS # (AUTO) 0.1 10^3/uL (0.0-0.3); EOSINOPHILS % (AUTO) 1 % (0-10); HEMATOCRIT 32 % (35-52); HEMOGLOBIN 10.2 g/dL (11.5-16.0); LYMPHOCYTES # (AUTO) 1.5 10^3/uL (1.0-4.0); LYMPHOCYTES % (AUTO) 17 % (12-44); MEAN CORPUSCULAR HEMOGLOBIN 28 pg (25-34); MEAN CORPUSCULAR HGB CONC 32 g/dL (32-36); MEAN CORPUSCULAR VOLUME 87 fL (80-99); MEAN PLATELET VOLUME 12.5 fL (9.0-12.2); MONOCYTES # (AUTO) 0.7 10^3/uL (0.0-1.0); MONOCYTES % (AUTO) 8 % (0-12); NEUTROPHILS # (AUTO) 6.4 10^3/uL (1.8-7.8); NEUTROPHILS % (AUTO) 73 % (42-75); PLATELET COUNT 188 10^3/uL (130-400); WHITE BLOOD COUNT 8.8 10^3/uL (4.3-11.0)
[2022-05-07] MEDS ORDERED: CATHETER FLUSH 10 ML SYR IV SCH (22:00)
[2022-05-08] VITALS (80 sets, daily range): BP systolic 90–154; BP diastolic 49–98
[2022-05-08] MEDS: AMPICILLIN FOR IV USE 1,000 MG in NS (IVPB) 50 ML IV SCH ×4 (01:02→14:29)
[2022-05-08] MEDS: fentaNYL INJ 100 MCG/2 ML AMP IVP PRN ×2 (01:10→02:15)
[2022-05-08] MEDS ORDERED: fentaNYL 2 mcg/ml BUPIVA 0.125 100 ML ONE ×2 (02:48→12:28)
[2022-05-08] MEDS ORDERED: LACTATED RINGERS 1,000 ML IV ONE ×2 (03:00→12:45)
[2022-05-08] MEDS: LACTATED RINGERS 1,000 ML IV SCH (03:41)
[2022-05-08] MEDS ORDERED: fentaNYL INJ 100 MCG/2 ML AMP ONE ×2 (04:41→09:32)
[2022-05-08] MEDS: D5 LR IV SOLUTION 1,000 ML IV SCH (06:15)
--- NOTE | 2022-05-08 06:46 | History & Physical-OB/GYN ---
PAULA WEST 05/08/22 0646: OB - Chief Complaint & HPI Date/Time Date of Admission: Date of Admission: May 07, 2022 at 20:05 Date seen by a Provider: May 08, 2022 Time Seen by a Provider: 07:30 Chief Complaint/History OB-Reason for Admission/Chief: Induction of Labor Hx : 2 Hx Para: 1 Hx Last Menstrual Period: 08/13/2021 Expected Date of Delivery: May 20, 2022 Gestational Age in Weeks: 38 Gestational Age in Days: 1 Indication for induction: other (decreased movement) History of Labs A+ blood type w/ antibody screen (-), HIV (-), Syphilis (-), GC/Chlamydia (-) Hep B (-), TSH normal, Rubella equivalent, Hgb 11.0 and platelets 235 on 02/14/2022. Hgb 10.2 and platelets 188 on 05/07/2022 GBS (+) Other female at 38.1 weeks gestation presents for induction of labor due to decreased movement. She denies complications with this and denies LOF, vaginal bleeding, vision/hearing changes, or fevers. She has noticed swelling in her legs. Allergies and Home Medications Allergies Coded Allergies: bee venom protein (honey bee) (Verified Allergy, Unknown, 02/09/20) Patient Home Medication List Ferrous Sulfate (Ferrous Sulfate) 325 Mg (65 Mg Iron) Tablet, 325 MG PO Q48H, (Reported) Entered as Reported by: ISIS PAEZ on 04/08/221346 Last Action: Reviewed Vit W-Ca,Fe,FA(<1 mg) ( Vitamins) 27 Mg Iron-800 Mcg Tablet, 1 EACH PO DAILY, (Reported) Entered as Reported by: ISIS PAEZ on 04/08/221346 Last Action: Reviewed OB - History Hx of Present Care: Yes Ultrasounds: Other (Suspected arge for gestational age. measured 39.97 ounces on May 06.) Obstetrical Complications: None Medical Complications: None Information Induced Hypertension: No Maternal Gestational Diabetes: No Hemorrhage: No Obstetrical History Hx : 2 Hx Para: 1 Hx # Term Pregnancies: 1 Hx # Pregnancies: 0 Number of Living Children: 1 Hx Termination: No Hx Multiple Gestation: No Hx Ectopic : No Hx Stillbirth: No Hx Complication: No Hx Induced Hypertens: No Hx Maternal Gestational Diabet: No Hx Hemorrhage: No Delivery History Hx Dystocia: No Hx Forceps Assisted Delivery: No Hx Vacuum Extraction Assisted: No Hx Placenta Abnormality: No Hx Distress: No Hx Section: No Hx Vaginal Delivery Post C-Sec: No Hx Blood Disorders: No Patient Past Medical History Denies Social History/Family History Alcohol Use: Denies Use Recreational Drug Use: No 2nd Hand Smoke Exposure: No Immunizations Influenza Vaccine Up-to-Date: No; Not Current Tetanus Booster (TDap): Less than 5yrs Rubella: not immune RPR/VDRL: Negative GBS Status: Positive HBsAG: Negative OB - Admission Exam Physical Exam Vitals: Vital Signs 05/08/22 05/08/22 04:55 05:05 Temp 36.5 Pulse 99 Resp 18 B/P (MAP) 119/65 (83) Pulse Ox 99 O2 Delivery Room Air HEENT: EOMI Lungs: Clear Extremities: Edema (trace pitting pedal edema) Reflexes: Normal Cervical Dilatation: 2cm Effacement: 50% Station: -3 Membranes: Intact Heart Rate: 130's Accelerations: Accelerations Present Decelerations: No Decelerations Short Term Variability: Present Net Software Architect Variability: Average (6-25) Contractions on Admission: >10 Minutes Apart Frequency of Contractions: several a day Duration: uncertain Intensity: Mild Torres Scoring Tool (Modified) Dilation (cm): 1-2cm (1) Effacement (%): 31-51% (1) Descent/Station: -3 (0) Cervix Consistency: Medium(1) Cervix Position: Middle/Mid-Position (1) Add 1 point for: Each previous vaginal delivery (1) Torres Score: 5 Labs Laboratory Tests Test 05/07/22 20:54 Range/Units White Blood Count 8.8 4.3-11.0 10^3/uL Red Blood Count 3.70 L 3.80-5.11 10^6/uL Hemoglobin 10.2 L 11.5-16.0 g/dL Hematocrit 32 L 35-52 % Mean Corpuscular Volume 87 80-99 fL Mean Corpuscular Hemoglobin 28 25-34 pg Mean Corpuscular Hemoglobin Concent 32 32-36 g/dL Red Cell Distribution Width 14.9 H 10.0-14.5 % Platelet Count 188 130-400 10^3/uL Mean Platelet Volume 12.5 H 9.0-12.2 fL Immature Granulocyte % (Auto) 0 % Neutrophils (%) (Auto) 73 42-75 % Lymphocytes (%) (Auto) 17 12-44 % Monocytes (%) (Auto) 8 0-12 % Eosinophils (%) (Auto) 1 0-10 % Basophils (%) (Auto) 0 0-10 % Neutrophils # (Auto) 6.4 1.8-7.8 10^3/uL Lymphocytes # (Auto) 1.5 1.0-4.0 10^3/uL Monocytes # (Auto) 0.7 0.0-1.0 10^3/uL Eosinophils # (Auto) 0.1 0.0-0.3 10^3/uL Basophils # (Auto) 0.0 0.0-0.1 10^3/uL Immature Granulocyte # (Auto) 0.0 0.0-0.1 10^3/uL OB - Assessment/Plan/Diagnosis Assessment Assessment: group B positive strep, induction of labor Admission Dx Decreased movement Plan Plan: Induction Induction Method: other (cytotec/pitocin) Other Plan GBS (+) -Ampicillin Started last night Pain Control -Epidural in place -fentanyl 25mcg Q1h prn ANJELICA ADLER MD 05/08/22 1708: Allergies and Home Medications Allergies Coded Allergies: bee venom protein (honey bee) (Verified Allergy, Unknown, 02/09/20) Patient Home Medication List Home Medication List Reviewed: Yes Ferrous Sulfate (Ferrous Sulfate) 325 Mg (65 Mg Iron) Tablet, 325 MG PO Q48H, (Reported) Entered as Reported by: ISIS PAEZ on 04/08/221346 Last Action: Reviewed Vit W-Ca,Fe,FA(<1 mg) ( Vitamins) 27 Mg Iron-800 Mcg Tablet, 1 EACH PO DAILY, (Reported) Entered as Reported by: ISIS PAEZ on 04/08/221346 Last Action: Reviewed OB - Assessment/Plan/Diagnosis Assessment Admission Status: Inpatient Order (span 2 midnights) Reason for Inpatient Admission: Labor, delivery and course Supervisory-Addendum Brief Verification & Attestation Participated in pt care: history, MDM, physical Personally performed: exam, history, MDM, supervision of care Care discussed with: Medical Student Procedures: n/a I personally saw and examined patient today. She was admitted last night and Torres score is based off of nurse exam. One dose of cytotec given and had regular contractions all night, was 5 cm this am and AROM was done with clear fluid at 0816. Agree with student documentation of assessment and plan. PAULA WEST May 08, 2022 06:46 ANJELICA ADLER MD May 08, 2022 17:08
[2022-05-08] MEDS ORDERED: BUPIVACAINE 0.25% 10 ML (SENSORCAINE) VIAL ONE (09:27)
[2022-05-08] MEDS: OXYTOCIN PRE-MIX DRIP 500 ML IV SCH ×2 (12:31→16:28)
[2022-05-08] MEDS ORDERED: CATHETER FLUSH 10 ML SYR IV PRN (12:45)
[2022-05-08] MEDS ORDERED: NALOXONE 0.4 MG/ML 1 ML (NARCAN) VIAL IV PRN (12:45)
[2022-05-08] MEDS ORDERED: fentaNYL 2 mcg/ml BUPIVA 0.125 100 ML IV SCH (12:45)
[2022-05-08] MEDS ORDERED: LIDOCAINE 1% INJ 20 ML VIAL ONE (14:38)
--- NOTE | 2022-05-08 16:23 | OB Labor & Delivery Record ---
Vag Delivery Note Vag Delivery Note Date of Delivery: 05/08/22 Preoperative Diagnosis: Madhuri Griffin is a (27 /Para 2 / 1,Gestational Age (wks)38with 2 days Postoperative Diagnosis: Same Surgeon: ANJELICA ADLER Anesthesia: Epidural Delivery Type: Findings: Viable male infant, apgars 7/9, weight 7#4 Lacerations: first degree perineal Intact placenta with 3 vessel cord. Bandolero cord. No nuchal cord or shoulder dystocia Estimated Blood Loss: 250 ml Complications: None Condition: Stable Description of Procedure: The patient is a 27 year old female who presented for induction of labor due to persistent decreased movement. She was admitted and informed consent was obtained. Her labor course was unremarkable. She progressed to complete dilatation and began to push. She was then set up for delivery. The infant's head was delivered atraumatically in the MARSHA position. The shoulders and remainder of the infant's body were then delivered without difficulty. Upon delivery, the was placed on maternal abdomen. The cord was doubly clamped and cut and the infant was handed off to the pediatric staff. An intact placenta with 3-vessel cord delivered via Wilver and there was found to be minimal bleeding.~ Vigorous fundal massage was performed and the fundus was found to be firm. IV oxytocin was given. Examination of the vagina and perineum revealed a 5 mm first degree perineal laceration not requiring repair. Following the delivery, sponge, instrument and needle counts were correct. Mom and baby were both in stable condition in the labor suite. Vitals - Labs Vital Signs - I&O Vital Signs Date Time Temp Pulse Resp B/P (MAP) Pulse Ox O2 Delivery O2 Flow Rate FiO2 05/08/22 11:40 36.8 05/08/22 11:31 94 18 133/80 (97) 97 Room Air 05/08/22 11:15 91 18 110/66 (81) 97 Room Air 05/08/22 11:00 106 18 146/86 (106) 98 Room Air 05/08/22 10:44 87 18 134/89 (104) 97 Room Air 05/08/22 10:30 105 18 141/84 (103) 99 Room Air 05/08/22 10:14 105 18 133/90 (104) 96 Room Air 05/08/22 10:01 99 18 146/89 (108) 95 Room Air 05/08/22 09:46 116 18 122/81 (95) 98 Room Air 05/08/22 09:40 124 18 106/59 (75) 99 Room Air 05/08/22 09:37 115 18 131/91 (104) 98 Room Air 05/08/22 09:30 104 18 127/67 (87) 99 Room Air 05/08/22 09:16 103 18 113/63 (80) 99 Room Air 05/08/22 09:00 104 18 127/65 (85) 99 Room Air 05/08/22 08:57 36.9 05/08/22 08:46 103 18 126/58 (80) 98 Room Air 05/08/22 08:30 96 18 125/65 (85) 98 Room Air 05/08/22 08:16 107 18 154/70 (98) 99 Room Air 05/08/22 08:02 95 18 139/77 (97) 98 Room Air 05/08/22 07:45 97 18 134/80 (98) 99 Room Air 05/08/22 07:31 86 18 120/69 (86) 99 Room Air 05/08/22 07:16 99 18 127/86 (100) 99 Room Air 05/08/22 07:00 87 18 122/72 (89) 99 Room Air 05/08/22 06:45 82 18 128/65 (86) 99 Room Air 05/08/22 06:30 106 18 100 Room Air 05/08/22 06:15 92 18 116/64 (81) 99 Room Air 05/08/22 06:00 36.8 84 18 117/66 (83) 99 Room Air 05/08/22 05:45 95 18 118/56 (76) 99 Room Air 05/08/22 05:35 89 18 112/63 (79) 99 Room Air 05/08/22 05:30 90 18 111/63 (79) 100 Room Air 05/08/22 05:25 81 18 112/61 (78) 100 Room Air 05/08/22 05:20 83 18 106/71 (83) 100 Room Air 05/08/22 05:15 82 18 117/62 (80) 100 Room Air 05/08/22 05:10 87 18 121/65 (83) 98 Room Air 05/08/22 05:05 99 18 119/65 (83) 99 Room Air 05/08/22 05:00 106 18 121/66 (84) 98 Room Air 05/08/22 04:55 36.5 95 18 121/65 (83) 99 Room Air 05/08/22 04:51 95 18 119/59 (79) 99 Room Air 05/08/22 04:49 94 18 117/55 (75) 99 Room Air 05/08/22 04:47 94 18 134/49 (77) 99 Room Air 05/08/22 04:44 96 18 128/61 (83) 99 Room Air 05/08/22 04:39 111 18 130/63 (85) 97 Room Air 05/08/22 04:36 97 18 137/66 (89) 97 Room Air 05/08/22 04:33 104 18 143/85 (104) 99 Room Air 05/08/22 04:30 112 18 125/85 (98) 99 Room Air 05/08/22 04:27 102 18 133/69 (90) 98 Room Air 05/08/22 04:24 112 18 133/68 (89) 98 Room Air 05/08/22 04:21 98 18 133/65 (87) 98 Room Air 05/08/22 04:18 109 18 128/69 (88) 99 Room Air 05/08/22 04:15 107 18 125/68 (87) 99 Room Air 05/08/22 04:12 103 18 125/63 (83) 100 Room Air 05/08/22 04:09 104 18 119/59 (79) 99 Room Air 05/08/22 04:06 94 18 145/64 (91) 99 Room Air 05/08/22 03:33 36.3 84 18 120/68 (85) Room Air 05/08/22 02:28 76 18 119/71 (87) Room Air 05/08/22 01:37 93 18 129/82 (98) Room Air 05/08/22 01:09 36.2 86 18 132/80 (97) Room Air 05/08/22 00:38 86 18 126/70 (88) Room Air 05/08/22 00:06 80 18 131/78 (95) Room Air 05/07/22 23:36 80 18 131/81 (98) Room Air 05/07/22 23:06 36.0 80 18 126/72 (90) Room Air 05/07/22 22:36 83 18 119/64 (82) Room Air 05/07/22 22:06 88 18 115/59 (77) Room Air 05/07/22 21:36 96 18 121/69 (86) Room Air 05/07/22 21:18 36.9 84 18 130/83 (99) Room Air 05/07/22 19:35 36.6 104 18 125/77 (93) 97 Room Air 05/07/22 19:35 36.6 104 18 97 Room Air Labs Laboratory Tests 05/07/22 20:54: White Blood Count 8.8, Red Blood Count 3.70L, Hemoglobin 10.2L, Hematocrit 32L, Mean Corpuscular Volume 87, Mean Corpuscular Hemoglobin 28, Mean Corpuscular Hemoglobin Concent 32, Red Cell Distribution Width 14.9H, Platelet Count 188, Mean Platelet Volume 12.5H, Immature Granulocyte % (Auto) 0, Neutrophils (%) (Auto) 73, Lymphocytes (%) (Auto) 17, Monocytes (%) (Auto) 8, Eosinophils (%) (Auto) 1, Basophils (%) (Auto) 0, Neutrophils # (Auto) 6.4, Lymphocytes # (Auto) 1.5, Monocytes # (Auto) 0.7, Eosinophils # (Auto) 0.1, Basophils # (Auto) 0.0, Immature Granulocyte # (Auto) 0.0 ANJELICA ADLER MD May 08, 2022 16:23
[2022-05-08] MEDS ORDERED: BENZOCAINE/MENTHOL (DERMOPLAST) 56 ML CAN TP PRN (16:30)
[2022-05-08] MEDS ORDERED: WITCH HAZEL(TUCKS) 40 EA JAR TOP PRN (16:30)
[2022-05-08] MEDS ORDERED: MEASLES,MUMPS,RUBELLA 1 EA INJ SQ ONE (16:30)
[2022-05-08] MEDS ORDERED: OXYTOCIN PRE-MIX DRIP 500 ML IV SCH (16:30)
[2022-05-08] MEDS: IBUPROFEN 600 MG (MOTRIN) TAB PO PRN ×2 (18:45→23:51)
[2022-05-08] MEDS ORDERED: AMPICILLIN FOR IV USE 2,000 MG in NS (IVPB) 50 ML IV SCH (19:33)
[2022-05-08] MEDS ORDERED: CATHETER FLUSH 10 ML SYR IV SCH (22:00)
[2022-05-08] MEDS: DOCUSATE SODIUM 100 MG (COLACE) CAP PO SCH (23:51)
[2022-05-09] MEDS: IBUPROFEN 600 MG (MOTRIN) TAB PO PRN ×3 (05:32→18:46)
[2022-05-09] MEDS ORDERED: MEASLES,MUMPS,RUBELLA 1 EA INJ ONE (05:33)
[2022-05-09 05:34] VITALS: BP 95/51
[2022-05-09 06:32] LABS: BASOPHILS % (AUTO) 0 % (0-10); EOSINOPHILS % (AUTO) 0 % (0-10); HEMATOCRIT 32 % (35-52); LYMPHOCYTES # (AUTO) 2.1 10^3/uL (1.0-4.0); LYMPHOCYTES % (AUTO) 16 % (12-44); MEAN CORPUSCULAR HEMOGLOBIN 28 pg (25-34); MEAN CORPUSCULAR HGB CONC 32 g/dL (32-36); MEAN CORPUSCULAR VOLUME 87 fL (80-99); MEAN PLATELET VOLUME 12.2 fL (9.0-12.2); MONOCYTES # (AUTO) 0.9 10^3/uL (0.0-1.0); MONOCYTES % (AUTO) 7 % (0-12); NEUTROPHILS # (AUTO) 10.4 10^3/uL (1.8-7.8); NEUTROPHILS % (AUTO) 77 % (42-75); PLATELET COUNT 177 10^3/uL (130-400); WHITE BLOOD COUNT 13.6 10^3/uL (4.3-11.0)
[2022-05-09 09:04] VITALS: BP 100/55
[2022-05-09] MEDS: DOCUSATE SODIUM 100 MG (COLACE) CAP PO SCH ×2 (09:05→21:50)
[2022-05-09] MEDS: PRENATAL VITAMIN 1 EA TAB PO SCH (09:05)
[2022-05-09 12:16] VITALS: BP 118/64
[2022-05-09] MEDS ORDERED: HYDROcodone/APAP 5 MG/325 MG (LORTAB) TAB PO ONE (13:30)
--- NOTE | 2022-05-09 14:56 | Postpartum Progress Note ---
Note Note Day # 1 Subjective: Ambulating, voiding. Tolerating a regular diet without nausea or vomiting. Normal lochia. Patient states that she is having alot of pain when she gets up. Breast/Bottle feeding. Objective: Physical Exam: General - Alert and oriented, no apparent distress Abdomen - Soft, appropriately tender to palpation, non-distended, fundus firm at umbilicus Extremities - no edema, negative Torey's bilaterally Assessment: 27 yo G2 now P2 post- day # 1, status post spontaneous vaginal delivery. Recovering well, hemodynamically stable Plan: Routine care. Encourage breast feeding, consult Encourage ambulation to help with pain control Hgb 10.2-->10.0 Plan for discharge tomorrow with [address] Petersen Vitals - Labs Vital Signs - I&O Vital Signs Date Time Temp Pulse Resp B/P (MAP) Pulse Ox O2 Delivery O2 Flow Rate FiO2 05/09/22 12:16 36.3 85 18 118/64 (82) 99 Room Air 05/09/22 09:04 36.1 88 18 100/55 (70) 98 Room Air 05/09/22 05:34 36.6 81 18 95/51 (66) 98 05/08/22 23:50 36.6 78 16 90/54 (66) 98 Room Air 05/08/22 20:32 36.9 85 18 104/59 (74) 96 Room Air 05/08/22 18:12 61 18 109/58 (75) Room Air 05/08/22 17:59 36.9 05/08/22 17:57 81 18 121/77 (92) Room Air 05/08/22 17:42 72 18 118/68 (85) Room Air 05/08/22 17:27 82 18 110/58 (75) Room Air 05/08/22 17:12 74 18 119/69 (86) Room Air 05/08/22 16:57 88 18 116/63 (80) Room Air 05/08/22 16:42 90 18 119/60 (79) Room Air 05/08/22 16:27 96 18 121/62 (81) Room Air 05/08/22 16:24 36.7 05/08/22 16:12 109 18 119/67 (84) Room Air 05/08/22 16:00 36.7 05/08/22 15:15 110 18 122/85 (97) 99 Room Air 05/08/22 15:00 106 18 131/80 (97) 98 Room Air 05/08/22 14:57 36.4 I & O 05/09/22 07:00 Intake Total 2100 ml Balance 2100 ml Labs Laboratory Tests 05/09/22 06:15: White Blood Count 13.6H, Red Blood Count 3.62L, Hemoglobin 10.0L, Hematocrit 32L , Mean Corpuscular Volume 87, Mean Corpuscular Hemoglobin 28, Mean Corpuscular Hemoglobin Concent 32, Red Cell Distribution Width 14.9H, Platelet Count 177, Mean Platelet Volume 12.2, Immature Granulocyte % (Auto) 0, Neutrophils (%) (Auto) 77H, Lymphocytes (%) (Auto) 16, Monocytes (%) (Auto) 7, Eosinophils (%) (Auto) 0, Basophils (%) (Auto) 0, Neutrophils # (Auto) 10.4H, Lymphocytes # (Auto) 2.1, Monocytes # (Auto) 0.9, Eosinophils # (Auto) 0.0, Basophils # (Auto) 0.0, Immature Granulocyte # (Auto) 0.1 YISSEL HARGROVE MD May 09, 2022 14:56
[2022-05-09 16:50] VITALS: BP 105/63
[2022-05-09 21:50] VITALS: BP 113/76
[2022-05-09] MEDS ORDERED: ACETAMINOPHEN 500 MG TAB (TYLENOL) ONE (22:45)
[2022-05-09] MEDS: ACETAMINOPHEN 500 MG TAB (TYLENOL) PO SCH (22:46)
[2022-05-10 01:18] VITALS: BP 119/77
[2022-05-10] MEDS: IBUPROFEN 600 MG (MOTRIN) TAB PO PRN (01:18)
[2022-05-10] MEDS: ACETAMINOPHEN 500 MG TAB (TYLENOL) PO SCH (06:16)
[2022-05-10 09:17] VITALS: BP 101/64
[2022-05-10] MEDS: DOCUSATE SODIUM 100 MG (COLACE) CAP PO SCH (09:23)
[2022-05-10] MEDS: PRENATAL VITAMIN 1 EA TAB PO SCH (09:23)
--- NOTE | 2022-05-10 10:26 | Discharge Summary ---
Diagnosis/Chief Complaint Date of Admission May 07, 2022 at 20:05 Date of Discharge 05/10/22 Admission Diagnosis Admission Diagnosis Third Trimester 38 week gestation Obesity in Discharge Diagnosis Uncomplicated Delivered term male infant Discharge Summary-Simple/Stand Procedures Epidural placement Discharge Physical Examination Allergies: Coded Allergies: bee venom protein (honey bee) (Verified Allergy, Unknown, 02/09/20) Vitals & I&Os Vital Sign - Last 12Hours Date Time Temp Pulse Resp B/P (MAP) Pulse Ox O2 Delivery O2 Flow Rate FiO2 05/10/22 09:17 36.4 76 18 101/64 (76) 100 Room Air General Appearance: Alert, Oriented X3, Cooperative, No Acute Distress Respiratory: Clear to Auscultation Cardiovascular: Regular Rate, No Murmurs Abdominal: Normal Bowel Sounds, Soft, No Tenderness, Other (Fundus firm and below umbilicus) Neuro: Normal Speech Hospital Course See final discharge diagnosis. Discussion & Recommendations 27 yo G2 now P2 delivered term male infant via @ 38 weeks. Discharge Condition at discharge stable Instructions to patient/family Please see electronic discharge instructions given to patient. Discharge Medications Reviewed and agree with Discharge Medication list on patient's Discharge Instruction sheet Copy Copies To 1: ANJELICA ADLER MD, HOLLY R MD May 10, 2022 10:26
[2022-05-10] MEDS ORDERED: IBUP-844 PO (10:27)
[2022-05-10] MEDS ORDERED: DOCU100C37 PO (10:27)
--- NOTE | 2022-05-10 10:30 | Discharge Summary ---
Discharge Inst-[facility] Reconcile Patient Problems Problems Reviewed?: Yes Depart Medications New, Converted or Re-Newed RX: Transmitted to Pharmacy New Medications: Docusate Sodium (Docusate Sodium) 100 Mg Capsule 100 MG PO BID, #28 CAP Ibuprofen (Ibu) 600 Mg Tablet 600 MG PO Q6HR PRN for PAIN-MILD (1-4), #30 TAB Continued Medications: Ferrous Sulfate (Ferrous Sulfate) 325 Mg (65 Mg Iron) Tablet 325 MG PO Q48H, TAB Vit W-Ca,Fe,FA(<1 mg) ( Vitamins) 27 Mg Iron-800 Mcg Tablet 1 EACH PO DAILY, TAB Follow Up/Instructions Goal/Follow Up: F.afia with Nicola in 6 weeks Activity Activity: Activity as Tolerated Driving Instructions: You May Drive NO SMOKING: NO SMOKING Nothing Inside Vagina: No Douching, No [place], No Tampons Diet Discharge Diet: No Restrictions Symptoms to Report to : Bleeding Excessive, Fever Over 101 Degrees F For Any Problems or Questions: Contact Your Physician Copies To 1: ANJELICA ADLER MD, HOLLY R MD May 10, 2022 10:30
[2022-05-10] MEDS ORDERED: MEASLES,MUMPS,RUBELLA 1 EA INJ ONE (11:02)
--- NOTE | 2022-05-12 14:43 | Anesthesia-Regional Post-Op ---
Regional Patient Condition Mental Status: Alert, Oriented x3 Circulation: Same as Pre-Op Headache: Absent Sensation: Full Recovery Motor Block: Absent Post Op Complications Complications None Follow Up Care/Instructions Patient Instructions None needed. Anesthesia/Patient Condition Patient is doing well, no complaints, stable vital signs, no apparent adverse anesthesia problems. No complications reported per nursing. ARELIS TORRES CRNA May 12, 2022 14:43
== END 2022-05-10 11:35 | disposition home or self-care (01) | DRG 807 ==
LOC: WSo 19:00 → LDRP 20:01 → WSo 20:03 → LDRP 20:05
PROVIDERS: ADMIT Family Medicine; ATTEND Family Medicine
PROC: 3E0P7VZ Introduction of Hormone into Female Reproductive, Via Natural or Artificial Opening (ICD-10-PCS; 2022-05-07)
PROC: 10E0XZZ Delivery of Products of Conception, External Approach (ICD-10-PCS; principal; 2022-05-08)
DX: O36.8130 Decreased fetal movements, third trimester, not applicable or unspecified (principal); Z37.0 Single live birth; O99.824 Streptococcus B carrier state complicating childbirth; Z3A.38 38 weeks gestation of pregnancy; O70.0 First degree perineal laceration during delivery; O99.214 Obesity complicating childbirth; E66.9 Obesity, unspecified; Z91.030 Bee allergy status
CPT/HCPCS: 36415; 85025; 86850; 86900; 86901; 90707